=== PATIENT | female | born 1970 | race Caucasian/White ===

== ENCOUNTER 2022-08-15 07:09 | Inpatient (IN) ==
[2022-08-15] MEDS ORDERED: FAMOTIDINE 20MG IV PUSH 20 MG/5 ML SYR IV STA (07:33)
[2022-08-15] MEDS ORDERED: ONDANSETRON INJ 2 MG/ML 2 ML VIAL IV STA (07:33)
[2022-08-15] MEDS ORDERED: MoRPHine SULFATE 4 MG/ML 1 ML CARP\\VIAL IV STA (07:33)
[2022-08-15] MEDS ORDERED: SODIUM CHLORIDE 0.9% 1000ML 1,000 ML IV SCH ×2 (07:34→10:00)
--- NOTE | 2022-08-15 07:39 | Emergency Department Note ---
History of Present Illness General Chief complaint: Abdominal Pain Stated complaint: BACK PAIN, ABDOMINAL PAIN Time Seen by Provider: 08/15/22 07:15 History of Present Illness Maximum Pain Intensity: 8 Patient is a 52-year-old female with past medical history significant for hypothyroidism, dyslipidemia, history of viral cardiomyopathy with recovered EF, and status post cholecystectomy (5 years ago) who presents emergency department for evaluation of upper abdominal pain wrapping around to the back that started acutely about 5 hours ago. She states the pain woke her from sleep. She describes a stabbing epigastric pain that wraps around to her upper back. She gets waves of cramping, spasming pain in the abdomen. It is worse when she lays flat and better when she sits upright. She is nauseous and vomited x1. No diarrhea. The pain was a bit worse earlier this morning, but she states it is gotten a little bit better, though she still rates her pain an 8/10. No urinary symptoms. She is postmenopausal. She reports having episode of pain similar to this on Wednesday, 2 days ago. The pain started in the morning, she thought it was indigestion and tried taking Tums. It progressively worsened throughout the day, finally improved around 1800 in the evening after she had vomited. She denies any unusual food or water consumption, foreign travel, recent antibiotic use. She has seen GI in the past for esophageal issues and had an EGD with dilatation. She has no chest pain. No shortness of breath. No hematemesis. No recent alcohol consumption. She has been following the [employer] diet plan x 5 months with 30 pound weight loss over that time period. No recent medication changes. Home Medications Medication Instructions Recorded Confirmed Type aspirin 81 mg chewable tablet 81 mg PO DAILY 04/24/21 08/15/22 History carvedilol 3.125 mg tablet (Coreg) 3.125 mg PO BID 04/24/21 08/15/22 History rosuvastatin 10 mg tablet (Crestor) 10 mg PO DAILY 04/24/21 08/15/22 History levothyroxine 25 mcg tablet 25 mcg PO DAILY #90 tabs 06/03/22 08/15/22 Rx (Synthroid) Allergies Allergy/AdvReac Type Severity Reaction Status Date / Time No Known Allergies Allergy Verified 10/09/21 15:40 Past Med/Surg History Medical History Bradycardia Cholelithiasis Family history of heart disease Hiatal hernia Hyperlipidemia Hypotension Hypothyroidism Viral cardiomyopathy Surgical History History of cholecystectomy History of hysterectomy Social History Smoking Status: Never smoker Feels Safe at Home: Yes Review of Systems A total of 10 systems reviewed and were otherwise negative Physical Exam Vital Signs Vital Signs - 24 hr 08/15/22 07:12 08/15/22 08:23 08/15/22 08:30 Temperature 36.5 C Temperature Source Oral Pulse Rate 65 67 68 Pulse Rate from SpO2 Sensor Respiratory Rate 20 20 20 Blood Pressure 123/53 L 100/60 111/54 L Blood Pressure Mean 76 73 73 Pulse Oximetry 94 99 99 Oxygen Delivery Method Room Air Room Air Sepsis Recent Fever Within 48 Hours No Sepsis New/Unexplained Change in Mental Status No Sepsis Action Taken by Nursing No Action Required 08/15/22 10:00 Temperature Temperature Source Pulse Rate 65 Pulse Rate from SpO2 Sensor 68 Respiratory Rate 18 Blood Pressure Blood Pressure Mean Pulse Oximetry 97 Oxygen Delivery Method Sepsis Recent Fever Within 48 Hours Sepsis New/Unexplained Change in Mental Status Sepsis Action Taken by Nursing CONSTITUTIONAL: Patient is an uncomfortable 52-year-old female who is awake and alert and seated up on the gurney in moderate distress due to her stated complaint. EYES: Pupils equal, round, reactive to light and accommodation. EOMs intact without nystagmus. Sclera are anicteric. ENT: Tympanic membranes intact, with normal landmarks. External canals are clear. Oral and nasopharynx are clear. Mucous membranes are moist, no lesions, tongue and gums appear normal. CARDIOVASCULAR: Regular rate and rhythm. Peripheral pulses easy to palpable. RESPIRATORY: Breath sounds equal and clear to auscultation without wheezes, rales, or rhonchi heard. Full and equal chest expansion without accessory muscle use or retractions. GI: Bowel sounds are present. Well-healed surgical scars are noted. The abdomen is soft, obese, mildly tender to percussion through the upper abdomen, and tender to palpation in the epigastric region and right upper quadrant with voluntary guarding. No pulsatile masses. MUSCULOSKELETAL: Full range of motion of extremities x 4 with good strength. No cyanosis, edema, joint tenderness or swelling. No deformity. INTEGUMENTARY: No lesions or rash, normal skin turgor. NEUROLOGICAL: Alert, oriented, and cooperative. Cranial nerves, sensation and strength grossly intact. Pupils round, equal, and react to light, EOMs are fu ll. LYMPH: No lymphadenopathy. Course Course Patient was seen and assessed as above. External medical records were reviewed. She presents the emergency department for evaluation of epigastric abdominal pain, nausea and vomiting. She is status post cholecystectomy. IV lock was initiated and laboratory studies were collected. CBC with differential, CMP, lipase, troponin and urinalysis were collected. EKG was performed. She was hydrated with normal saline solution. She was treated with morphine 4 mg Zofran 4 mg and Pepcid 20 mg IV, with good relief of her pain. Laboratory studies note a normal white count of 8300, left shift noted. No anemia. Electrolytes and renal functions are normal. Total bilirubin elevated at 1.8, transaminases are all also elevated, lipase is greater than 4000, concerning for pancreatitis. High-sensitivity troponin is negative and not indicative of ACS. Urine microscopy is concerning for infection with nitrates leukocyte esterase and 4+ bacteria, 20-30 epithelial cells are noted, and a urine culture is pending. The patient is not experiencing any urinary symptoms. EKG is without acute ischemic changes. CT scan of the abdomen and pelvis with IV contrast notes the liver, gallbladder and biliary tree to be unremarkable. She is s/p cholecystectomy. Physiologic prominence of the biliary ducts noted. The pancreas was unremarkable with no focal lesions. No other acute intra-abdominal findings noted. Laboratory and diagnostic imaging studies were reviewed with attending physician, Dr. Montelongo, and discussed with the patient and her daughter. She has findings concerning for acute pancreatitis with an elevated lipase, structurally the pancreas is appears abnormal on CT. She also has elevation of her transaminases and bilirubin, concerning for biliary pathology, possibly a passed stone. After review of the information above and other included data, I feel the patient will need admission/observation to further delineate the source of her symptoms. She will likely require an MRCP and GI evaluation. This was discussed with the patient and her daughter, she was agreeable. A COVID test was obtained for admitting purposes and was negative. Administered Medications Lactated Ringer's (Lr) 1,000 mls @ 200 mls/hr IV .Q5H MIRIAN Stop: 08/16/22 05:24 Last Admin: 08/15/22 15:30 Dose: 200 mls/hr Documented By: ENE Discontinued Medications Sodium Chloride (Nss 1000ml) 1,000 mls @ 999 mls/hr IV .Q1H1M MIRIAN Stop: 08/15/22 08:34 Last Infusion: 08/15/22 09:33 Dose: 0 mls/hr Documented By: Admin: 08/15/22 08:24 Dose: 999 mls/hr Documented By: CHRISTAL Famotidine (Pepcid 20mg Iv Push) 20 mg in 5 mls @ 2.5 mls/min IV NOW STA Stop: 08/15/22 07:34 Last Admin: 08/15/22 08:23 Dose: 2.5 mls/min Documented By: CHRISTAL Sodium Chloride (Nss 1000ml) 1,000 mls @ 250 mls/hr IV .Q4H MIRIAN Stop: 09/14/22 09:59 Last Infusion: 08/15/22 12:30 Dose: 0 mls/hr Documented By: Admin: 08/15/22 10:07 Dose: 250 mls/hr Documented By: ENE Lactated Ringer's (Lr) 1,000 mls @ 999 mls/hr IV .Q1H1M ONE Stop: 08/15/22 11:13 Last Infusion: 08/15/22 15:26 Dose: 0 mls/hr Documented By: Admin: 08/15/22 12:00 Dose: 999 mls/hr Documented By: ENE Metronidazole (Flagyl) 500 mg in 100 mls @ 100 mls/hr IV NOW STA Stop: 08/15/22 11:41 Last Infusion: 08/15/22 13:34 Dose: 0 mls/hr Documented By: Admin: 08/15/22 12:19 Dose: 100 mls/hr Documented By: ENE Ceftriaxone Sodium (Rocephin) 2,000 mg in 70 mls @ 140 mls/hr IV NOW STA Stop: 08/15/22 14:39 Last Infusion: 08/15/22 15:25 Dose: 0 mls/hr Documented By: Admin: 08/15/22 14:16 Dose: 140 mls/hr Documented By: ENE Ioversol (Optiray 350 100ml) 94 ml IV ONCE ONE Stop: 08/15/22 09:07 Last Admin: 08/15/22 09:06 Dose: 94 ml Documented By: BRODIE Morphine Sulfate (Morphine Sulfate 4 Mg/Ml 1 Ml Carp\Vial) 4 mg IV NOW STA Stop: 08/15/22 07:34 Last Admin: 08/15/22 08:24 Dose: 4 mg Documented By: CHRISTAL Ondansetron HCl (Ondansetron Inj 2 Mg/Ml 2 Ml Vial) 4 mg IV NOW STA Stop: 08/15/22 07:34 Last Admin: 08/15/22 08:23 Dose: 4 mg Documented By: CHRISTAL Medical Decision Making Differential Diagnosis Differential diagnoses considered included GERD, gastritis, esophagitis, peptic ulcer disease, acute pancreatitis, choledocholithiasis, ascending cholangitis, bowel obstruction, aortic dissection, ACS, acute MN, among others. Medical Records Attestation: I reviewed the patient's medical records. Home Medications Current Medication List: was personally reviewed by me Laboratory Data Attestation: I reviewed the patient's lab results. 08/15/22 08:42 08/15/22 08:15 Lab Results 08/15/22 08/15/22 08/15/22 Range/Units 07:40 08:15 08:15 WBC Cancelled RBC Cancelled Hgb Cancelled Hct Cancelled MCV Cancelled MCH Cancelled MCHC Cancelled RDW Std Deviation Cancelled RDW Coeff of Serina Cancelled Plt Count Cancelled MPV Cancelled Immature Gran % (Auto) Cancelled Neut % (Auto) Cancelled Lymph % (Auto) Cancelled [place] % (Auto) Cancelled Eos % (Auto) Cancelled Baso % (Auto) Cancelled Neut # (Auto) Cancelled Lymph # (Auto) Cancelled [place] # (Auto) Cancelled Eos # (Auto) Cancelled Baso # (Auto) Cancelled Immature Gran # (Auto) Cancelled Absolute Nucleated RBC Cancelled Nucleated RBC % (auto) Cancelled Neutrophils % (Manual) Cancelled Band Neutrophils % Cancelled Lymphocytes % (Manual) Cancelled Prolymphocyte % Cancelled Reactive Lymphs % (Man) Cancelled Monocytes % (Manual) Cancelled Eosinophils % (Manual) Cancelled Basophils % (Manual) Cancelled Metamyelocytes % (Man) Cancelled Myelocytes % (Man) Cancelled Promyelocytes % (Man) Cancelled Blast Cells % (Manual) Cancelled Plasma Cell % (Manual) Cancelled Other Cells % Cancelled Nucleated RBC % Cancelled Neutrophils # (Manual) Cancelled Band Neutrophils # Cancelled Total Absolute Neuts Cancelled Lymphocytes # (Manual) Cancelled Prolymphocyte # Cancelled Reactive Lymphs # Cancelled Total Abs Lymphocytes Cancelled Monocytes # (Manual) Cancelled Eosinophils # (Manual) Cancelled Basophils # (Manual) Cancelled Metamyelocytes # (Man) Cancelled Myelocytes # (Manual) Cancelled Promyelocytes # (Man) Cancelled Blast Cells # (Man) Cancelled Plasma Cell # (Manual) Cancelled Other Cells # Cancelled Nucleated RBCs # (Man) Cancelled Hypersegmented Neuts Cancelled Hyposegmented Neuts Cancelled Hypogranular Neuts Cancelled Large Granular Lymphs Cancelled # Lrg Granular Lymphs Cancelled Hairy Cells Cancelled Smudge Cells Cancelled Toxic Granulation Cancelled Toxic Vacuolation Cancelled Dohle Bodies Cancelled Benita Rods Cancelled Platelet Estimate Cancelled Hypogranular Platelets Cancelled Clumped Platelets Cancelled Giant Platelets Cancelled Platelet Satelliting Cancelled RBC Morphology Cancelled Polychromasia Cancelled Hypochromasia Cancelled Poikilocytosis Cancelled Basophilic Stippling Cancelled Anisocytosis Cancelled Microcytosis Cancelled Macrocytosis Cancelled Spherocytes Cancelled Pappenheimer Bodies Cancelled Sickle Cells Cancelled Target Cells Cancelled Tear Drop Cells Cancelled Ovalocytes Cancelled Stomatocytes Cancelled [place] Bodies Cancelled Echinocytes Cancelled Acanthocytes (Spur) Cancelled Rouleaux Cancelled RBC Agglutinates Cancelled Schistocytes Cancelled [place] Cell Cancelled Sodium 138 (136-145) mmol/L Potassium 4.0 (3.5-5.1) mmol/L Chloride 105 (98-107) mmol/L Carbon Dioxide 23 (21-32) mmol/L Anion Gap 10 (3-11) BUN 13 (6-23) mg/dl Creatinine 0.60 (0.6-1.2) mg/dl Est Cr Clr Drug Dosing 121.5 ml/min Est GFR ( Amer) 119.8 ml/min Est GFR (Non-Af Amer) 103.3 ml/min BUN/Creatinine Ratio 21.7 H (10-20) Glucose 139 H (70-99(Fasting)) mg/dl Calcium 9.7 (8.5-10.1) mg/dl Total Bilirubin 1.8 H (0.2-1.0) mg/dl AST 385 H (13-39) U/L ALT 615 H (7-52) U/L Alkaline Phosphatase 304 H (34-104) U/L Troponin I High Sens 4.7 (0-14) pg/ml Total Protein 7.8 (6.0-8.3) gm/dl Albumin 4.6 (3.4-5.0) gm/dl Globulin 3.2 (2.5-4.0) gm/dl Albumin/Globulin Ratio 1.4 (0.9-2) Triglycerides (0-150) mg/dl Lipase 4297 H (11-82) U/L Urine Color Dark Yellow Urine Appearance Cloudy A (Clear) Urine pH 6.5 (4.5-7.5) Ur Specific [place] 1.020 (1.000-1.030) Urine Protein Negative (Negative) Urine Glucose (UA) Negative (Negative) Urine Ketones Negative (Negative) Urine Blood Trace H (Negative) Urine Nitrite Positive A (Negative) Urine Bilirubin 1+ H (Negative) Urine Urobilinogen Negative (Negative) Ur Leukocyte Esterase 2+ H (Negative) Urine WBC (Auto) 10-30 H (0-5) /hpf Urine RBC (Auto) 0-4 (0-4) /hpf U Hyaline Cast (Auto) 1-5 (0-5) /lpf U Epithel Cells (Auto) 20-30 H (0-5) /lpf Urine Bacteria (Auto) 4+ H (Negative) SARS-CoV-2, RNA, NAAT (NEGATIVE) Blood Parasites ID Cancelled 08/15/22 08/15/22 08/15/22 Range/Units 08:15 08:42 09:55 WBC 8.35 RBC 4.55 Hgb 13.4 Hct 39.8 MCV 87.5 MCH 29.5 MCHC 33.7 RDW Std Deviation 39.8 RDW Coeff of Serina 12.5 Plt Count 256 MPV 11.6 Immature Gran % (Auto) 0.4 Neut % (Auto) 84.9 Lymph % (Auto) 9.6 [place] % (Auto) 4.1 Eos % (Auto) 0.8 Baso % (Auto) 0.2 Neut # (Auto) 7.09 H Lymph # (Auto) 0.80 L [place] # (Auto) 0.34 Eos # (Auto) 0.07 Baso # (Auto) 0.02 Immature Gran # (Auto) 0.03 H Absolute Nucleated RBC Nucleated RBC % (auto) Neutrophils % (Manual) Band Neutrophils % Lymphocytes % (Manual) Prolymphocyte % Reactive Lymphs % (Man) Monocytes % (Manual) Eosinophils % (Manual) Basophils % (Manual) Metamyelocytes % (Man) Myelocytes % (Man) Promyelocytes % (Man) Blast Cells % (Manual) Plasma Cell % (Manual) Other Cells % Nucleated RBC % Neutrophils # (Manual) Band Neutrophils # Total Absolute Neuts Lymphocytes # (Manual) Prolymphocyte # Reactive Lymphs # Total Abs Lymphocytes Monocytes # (Manual) Eosinophils # (Manual) Basophils # (Manual) Metamyelocytes # (Man) Myelocytes # (Manual) Promyelocytes # (Man) Blast Cells # (Man) Plasma Cell # (Manual) Other Cells # Nucleated RBCs # (Man) Hypersegmented Neuts Hyposegmented Neuts Hypogranular Neuts Large Granular Lymphs # Lrg Granular Lymphs Hairy Cells Smudge Cells Toxic Granulation Toxic Vacuolation Dohle Bodies Benita Rods Platelet Estimate Hypogranular Platelets Clumped Platelets Giant Platelets Platelet Satelliting RBC Morphology Polychromasia Hypochromasia Poikilocytosis Basophilic Stippling Anisocytosis Microcytosis Macrocytosis Spherocytes Pappenheimer Bodies Sickle Cells Target Cells Tear Drop Cells Ovalocytes Stomatocytes [place] Bodies Echinocytes Acanthocytes (Spur) Rouleaux RBC Agglutinates Schistocytes [place] Cell Sodium (136-145) mmol/L Potassium (3.5-5.1) mmol/L Chloride (98-107) mmol/L Carbon Dioxide (21-32) mmol/L Anion Gap (3-11) BUN (6-23) mg/dl Creatinine (0.6-1.2) mg/dl Est Cr Clr Drug Dosing ml/min Est GFR ( Amer) ml/min Est GFR (Non-Af Amer) ml/min BUN/Creatinine Ratio (10-20) Glucose (70-99(Fasting)) mg/dl Calcium (8.5-10.1) mg/dl Total Bilirubin (0.2-1.0) mg/dl AST (13-39) U/L ALT (7-52) U/L Alkaline Phosphatase (34-104) U/L Troponin I High Sens (0-14) pg/ml Total Protein (6.0-8.3) gm/dl Albumin (3.4-5.0) gm/dl Globulin (2.5-4.0) gm/dl Albumin/Globulin Ratio (0.9-2) Triglycerides 64 (0-150) mg/dl Lipase (11-82) U/L Urine Color Urine Appearance (Clear) Urine pH (4.5-7.5) Ur Specific [place] (1.000-1.030) Urine Protein (Negative) Urine Glucose (UA) (Negative) Urine Ketones (Negative) Urine Blood (Negative) Urine Nitrite (Negative) Urine Bilirubin (Negative) Urine Urobilinogen (Negative) Ur Leukocyte Esterase (Negative) Urine WBC (Auto) (0-5) /hpf Urine RBC (Auto) (0-4) /hpf U Hyaline Cast (Auto) (0-5) /lpf U Epithel Cells (Auto) (0-5) /lpf Urine Bacteria (Auto) (Negative) SARS-CoV-2, RNA, NAAT NEGATIVE (NEGATIVE) Blood Parasites ID Imaging Data Attestation: I personally reviewed and interpreted this imaging study as follows: Radiologist's Impression: Abdomen/Pelvis CT 08/15/22 07:33 CT abd pelvis IV con only CLINICAL HISTORY: UPPER ABD PAIN, BACK PAIN, N/V TECHNIQUE: Helical axial images of the abdomen and pelvis were obtained and displayed. Automated dose lowering techniques and/or adjustment according to patient size were utilized for this exam. This exam was performed with intravenous contrast. CT DOSE: 1158.42 mGy.cm COMPARISON: None available at the time of this dictation. FINDINGS: Lower chest: Bibasilar atelectasis versus scarring is seen. Liver: Unremarkable. No focal lesions are seen. Gallbladder and biliary tree: Patient is status post cholecystectomy. Physiologic prominence of the biliary ducts is noted. Pancreas: Unremarkable, no focal lesions. Spleen: Unremarkable. Adrenals: Unremarkable. Kidneys and ureters: Unremarkable. Bladder: Limited evaluation due to underdistention. Reproductive organs: Patient is status post hysterectomy. Bowel: The appendix is not definitely seen but no secondary signs of appen dicitis are noted. There is a small hiatal hernia. Lymph nodes Retroperitoneal: Unremarkable. Pelvic: Unremarkable. Mesenteric: Unremarkable. Peritoneum: Normal. Vessels: Unremarkable. Abdominal wall: Unremarkable. Bones: Degenerative changes in the visualized spine. IMPRESSION: No acute abnormalities to explain and upper back pain and vomiting. No evidence of pancreatitis or bowel obstruction. ACT 112: Negative or not required by law. Electronically signed by: Ascencion Mcclure M.D. 08/15/2022 9:22 AM Cholangiopancreatography MRI 08/15/22 10:13 MR MRCP CLINICAL HISTORY: pancreatitis, suspected cholelithiasis TECHNIQUE: Multiplanar multisequence MR images of the abdomen were obtained, as per MRCP protocol. . COMPARISON: Comparison is made to CT abdomen pelvis 08/15/2022 FINDINGS: Lower chest: No acute abnormality Liver: Unremarkable. No focal lesions are seen. Gallbladder and biliary tree: Patient is status post cholecystectomy. The common bile duct measures 7 mm in diameter compatible with physiologic dilation. No filling defects or strictures are seen. Pancreas: Unremarkable, no focal lesions. Spleen: Unremarkable. Adrenals: Unremarkable. Kidneys and ureters: Unremarkable. Bowel: A hiatal hernia is seen. Lymph nodes Retroperitoneal: Unremarkable. Mesenteric: Unremarkable. Peritoneum: Normal Vessels: Unremarkable. Abdominal wall: Unremarkable. Bones: Unremarkable. IMPRESSION: No acute abnormality, in particular no evidence of choledocholithiasis or cholecystitis in this patient status post cholecystectomy. No peripancreatic edema is seen in the pancreatic duct is normal where visualized. ACT 112: Negative or not required by law. Electronically signed by: Ascencion Mcclure M.D. 08/15/2022 11:31 AM Chest X-Ray 08/15/22 10:14 XR chest 1V portable CLINICAL HISTORY: epigastric pain ?lung pathology TECHNIQUE: Single frontal radiograph of the chest was obtained. Comparison: None available at the time of this dictation. FINDINGS: No lines and tubes are seen. The cardiomediastinal silhouette is normal. The lungs are clear. No evidence of pleural effusion or pneumothorax. IMPRESSION: No acute chest disease. ACT 112: Negative or not required by law. Electronically signed by: Ascencion Mcclure M.D. 08/15/2022 12:27 PM ECG Data Attestation: I personally reviewed and interpreted this ECG as follows: Indication: + abdominal pain Rate (beats per minute): 63 Rhythm: + normal sinus ECG [place]: + Normal ECG ST segments: + Normal ST segments Comparison ECG Date: no prior available MDM Narrative See ED Course. Impression & Plan Acute pancreatitis, Transaminitis, Epigastric abdominal pain Discharge Plan Visit Data Chief Complaint: Abdominal Pain Stated Complaint: BACK PAIN, ABDOMINAL PAIN ED Provider: Anna Montelongo ED Midlevel Provider: Adriana Solis Discharge Problem: Acute pancreatitis, Transaminitis, Epigastric abdominal pain Patient Disposition: Being Evaluated by Hospitalist Discharge Instructions Interventions: ED Discharge Assessment Last Done: 08/15/22 14:25
[2022-08-15 08:33] LABS: Appearance Urine Cloudy (Clear); Bacteria Urine Automated 4+ (Negative); Blood Urine Trace (Negative); Color Urine Dark Yellow; Epithelial Cell Urine Auto 20-30 /lpf (0-5); Glucose Urine UA Negative (Negative); Ketones Urine Negative (Negative); Leukocyte Esterase Urine 2+ (Negative); Nitrite Urine Positive (Negative); Protein Urine Negative (Negative); RBC Urine Automated 0-4 /hpf (0-4); Urobilinogen Urine Negative (Negative); pH Urine 6.5 (4.5-7.5)
[2022-08-15 08:38] LABS: Bilirubin Urine 1+ (Negative)
[2022-08-15 08:50] LABS: BUN Creatinine Ratio 21.7 (10-20); Calcium 9.7 mg/dl (8.5-10.1); Creatinine Clr Calc Pharmacy 121.5 ml/min; Est GFR (African American) 119.8 ml/min; Est GFR (Non-African American) 103.3 ml/min
[2022-08-15 08:52] LABS: Basophils # (auto) 0.02 K/uL (0-0.2); Basophils % (auto) 0.2 %; Eosinophils # (auto) 0.07 K/uL (0-0.50); Eosinophils % (auto) 0.8 %; Hematocrit (blood only) 39.8 % (34.1-44.9); Hemoglobin 13.4 g/dl (12.0-16.0); Immature Granulocytes # (auto) 0.03 K/uL (0.00-0.02); Immature Granulocytes % (auto) 0.4 %; Lymphocytes % (auto) 9.6 %; Mean Corpuscular Hemoglobin 29.5 pg (25.0-34.0); Mean Corpuscular Hgb Conc 33.7 g/dL (32.0-36.0); Mean Corpuscular Volume 87.5 fL (80.0-100.0); Mean Platelet Volume 11.6 fL (9.4-12.3); Monocytes # (auto) 0.34 K/uL (0.24-0.82); Monocytes % (auto) 4.1 %; Neutrophils # (auto) 7.09 K/uL (1.4-6.5); Neutrophils % (auto) 84.9 %; Platelet Count 256 K/uL (130-400); RDW Coefficient of Variation 12.5 % (11.5-14.5); RDW Standard Deviation 39.8 fL (36.4-46.3); Red Blood Count 4.55 M/uL (3.93-5.22); White Blood Count 8.35 K/ul (4.8-10.8)
[2022-08-15 08:52] LABS: Troponin I High Sensitivity 4.7 pg/ml (0-14)
[2022-08-15] MEDS ORDERED: OPTIRAY 350 100ml IV ONE (09:06)
--- NOTE | 2022-08-15 09:24 | CT Scan Report ---
CT abd pelvis IV con only CLINICAL HISTORY: UPPER ABD PAIN, BACK PAIN, N/V TECHNIQUE: Helical axial images of the abdomen and pelvis were obtained and displayed. Automated dose lowering techniques and/or adjustment according to patient size were utilized for this exam. This e xam was performed with intravenous contrast. CT DOSE: 1158.42 mGy.cm COMPARISON: None available at the time of this dictation. FINDINGS: Lower chest: Bibasilar atelectasis versus scarring is seen. Liver: Unremarkable. No focal lesions are seen. Gallbladder and biliary tree: Patient is status post cholecystectomy. Physiologic prominence of the b iliary ducts is noted. Pancreas: Unremarkable, no focal lesions. Spleen: Unremarkable. Adrenals: Unremarkable. Kidneys and ureters: Unremarkable. Bladder: Limited evaluation due to underdistention. Reproductive organs: Patient is status post hysterectomy. Bowel: The appendix is not definitely seen but no secondary signs of appendicitis are noted. There is a small hiatal hernia. Lymph nodes Retroperitoneal: Unremarkable. Pelvic: Unremarkable. Mesenteric: Unremarkable. Peritoneum: Normal. Vessels: Unremarkable. Abdominal wall: Unremarkable. Bones: Degenerative changes in the visualized spine. IMPRESSION: No acute abnormalities to explain and upper back pain and vomiting. No evidence of pancreatitis or [place] wel obstruction. ACT 112: Negative or not required by law. Electronically signed by: Ascencion Mcclure M.D. 08/15/2022 9:22 AM
[2022-08-15 09:30] LABS: Albumin Globulin Ratio 1.4 (0.9-2); Albumin Level 4.6 gm/dl (3.4-5.0); Bilirubin,Total 1.8 mg/dl (0.2-1.0); Globulin 3.2 gm/dl (2.5-4.0); Total Protein 7.8 gm/dl (6.0-8.3)
[2022-08-15] MEDS ORDERED: MoRPHine SULFATE 4 MG/ML 1 ML CARP\\VIAL IV PRN (09:52)
[2022-08-15] MEDS ORDERED: LACTATED RINGER'S 1,000 ML IV ONE (10:13)
--- NOTE | 2022-08-15 10:30 | History & Physical Report ---
Date of Service August 15, 2022 Assessment & Plan (1) Acute pancreatitis: Plan: Suspected biliary pancreatitis - no abnormality seen on CT (?due to acute onset and passed stone) - likely passed given pain reduction however warrants EGD regardless given second episode in a week without a gallbladder and suspected esophageal stricture stricture causing esophageal dysphagia on a more chronic basis. NSS 1L bolus given in ER. Additional 1L LR bolus now then 200ml/hr overnight. Patient is not septic appearing and WBC normal however given obstruction will cover with antibiotic prophylaxis with ceftriaxone and metronidazole Morphine 2 mg IV every 2 hourly as needed for pain Ondansetron 4 mg IV every 4 hourly as needed for nausea or vomiting Triglycerides added to labs for completeness -however low suspicion of this. Repeat LFTs in AM MRCP Consult gastroenterology (2) Cholelithiasis: Plan: Suspected passed stone. MRCP as above (3) Transaminitis: Plan: Suspect from biliary obstruction as above (4) Esophageal dysphagia: Plan: Slow progressive worsening Suspected stricture since she had dilatation previously 5-6 years ago. (5) Hypothyroidism: Plan: Holding levothyroxine while NPO (6) Hyperlipidemia: Plan: Holding rosuvastatin while NPO Plan VTE Prophylaxis - low risk Diet - NPO except sips, ice chips and meds Disposition - admit to [facility] Admission and Anticipated Discharge Date Admission Date: August 15, 2022 History of Present Illness Primary Care Provider: Liang Calvin PA-C - [place] Deb Olivas 52 year old female who presents to ER with epigastric pain. She has had 2 episodes of this. Her previous episode started on Wednesday (3 days ago) lasting for approximately 12 hours and resolved by itself. Her second episode started at 2 AM this morning. She reports epigastric pain. Started on Wednesday, then again at 2 this morning. Pain is epigastric but radiates through to her back. Severity 9 out of 10. No relief with Tums. Pain was sharp and coming on in waves. Associated violent vomiting with yellow liquid. She has never had similar episodes in the past. This is on a background of esophageal dysphagia for the last 6 months with food getting stuck. Does not happen with liquids. Occasionally this leads to her vomiting. She reports previously having esophageal dysphagia and required an EGD and dilatation approximately 5 to 6 years ago. She reports cholecystectomy in 2016 which was removed for biliary colic planning as an elective operation. 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 In the ER she was given normal saline 1 L bolus and morphine 4 mg IV which completely resolved her pain. Allergies Allergy/AdvReac Type Severity Reaction Status Date / Time No Known Allergies Allergy Verified 10/09/21 15:40 Home Medications Medication Instructions Recorded Confirmed Type aspirin 81 mg chewable tablet 81 mg PO DAILY 04/24/21 08/15/22 History carvedilol 3.125 mg tablet (Coreg) 3.125 mg PO BID 04/24/21 08/15/22 History rosuvastatin 10 mg tablet (Crestor) 10 mg PO DAILY 04/24/21 08/15/22 History levothyroxine 25 mcg tablet 25 mcg PO DAILY #90 tabs 06/03/22 08/15/22 Rx (Synthroid) Past Med/Surg History Medical History Bradycardia Cholelithiasis Family history of heart disease Hiatal hernia Hyperlipidemia Hypotension Hypothyroidism Viral cardiomyopathy Surgical History History of cholecystectomy History of hysterectomy Social History Smoking Status: Never smoker Feels Safe at Home: Yes Review of Systems Review of Systems: All systems reviewed & are unremarkable except as noted in HPI & below Physical Exam Constitutional: WD/WN, vitals as above Respiratory: normal respiratory effort, lungs clear to auscultation Cardiovascular: RRR, no murmur, no edema Gastrointestinal (Abdomen): normal bowel sounds, soft, nontender, no hepatosplenomegaly Inspection/Auscultation: abdomen not distended Musculoskeletal: no cyanosis or clubbing, extremities motor strength 5/5 Skin: no rashes, warm and dry Psychiatric: A+Ox3, euthymic affect Results & Data Results & Data ([facility]) Vital Signs (Past 12 Hours) Vital Signs Temp Pulse Resp BP Pulse Ox O2 Del Method 08/15/22 10:00 65 18 97 08/15/22 08:30 68 20 111/54 L 99 08/15/22 08:23 67 20 100/60 99 Room Air 08/15/22 07:12 36.5 C 65 20 123/53 L 94 Room Air Laboratory Results Abnormal lab results 08/15/22 08/15/22 08/15/22 Range/Units 07:40 08:15 08:42 Neut # (Auto) 7.09 H (1.4-6.5) K/uL Lymph # (Auto) 0.80 L (1.2-3.4) K/uL Immature Gran # (Auto) 0.03 H (0.00-0.02) K/uL BUN/Creatinine Ratio 21.7 H (10-20) Glucose 139 H (70-99(Fasting)) mg/dl Total Bilirubin 1.8 H (0.2-1.0) mg/dl AST 385 H (13-39) U/L ALT 615 H (7-52) U/L Alkaline Phosphatase 304 H (34-104) U/L Lipase 4297 H (11-82) U/L Urine Appearance Cloudy A (Clear) Urine Blood Trace H (Negative) Urine Nitrite Positive A (Negative) Urine Bilirubin 1+ H (Negative) Ur Leukocyte Esterase 2+ H (Negative) Urine WBC (Auto) 10-30 H (0-5) /hpf U Epithel Cells (Auto) 20-30 H (0-5) /lpf Urine Bacteria (Auto) 4+ H (Negative) Diagnostic Findings CT abd pelvis IV con only CLINICAL HISTORY: UPPER ABD PAIN, BACK PAIN, N/V TECHNIQUE: Helical axial images of the abdomen and pelvis were obtained and displayed. Automated dose lowering techniques and/or adjustment according to patient size were utilized for this exam. This exam was performed with intravenous contrast. CT DOSE: 1158.42 mGy.cm COMPARISON: None available at the time of this dictation. FINDINGS: Lower chest: Bibasilar atelectasis versus scarring is seen. Liver: Unremarkable. No focal lesions are seen. Gallbladder and biliary tree: Patient is status post cholecystectomy. Physiologic prominence of the biliary ducts is noted. Pancreas: Unremarkable, no focal lesions. Spleen: Unremarkable. Adrenals: Unremarkable. Kidneys and ureters: Unremarkable. Bladder: Limited evaluation due to underdistention. Reproductive organs: Patient is status post hysterectomy. Bowel: The appendix is not definitely seen but no secondary signs of appendicitis are noted. There is a small hiatal hernia. Lymph nodes Retroperitoneal: Unremarkable. Pelvic: Unremarkable. Mesenteric: Unremarkable. Peritoneum: Normal. Vessels: Unremarkable. Abdominal wall: Unremarkable. Bones: Degenerative changes in the visualized spine. IMPRESSION: No acute abnormalities to explain and upper back pain and vomiting. No evidence of pancreatitis or bowel obstruction. Medications Administered ER medications given: NSS 1L bolus Ondansetron 4 mg IV Morphine 4 mg IV Famotidine 20 mg IV NSS @ 250ml/hr ECG Indication: abdominal pain Rate (beats per minute): 63 Rhythm: normal sinus Findings: no acute ischemic change Comparison ECG Date: no prior available Code Status & VTE Plan Code Status Full VTE Prophylaxis Plan VTE Prophylaxis will be ordered: No Reason for no VTE drug order: Treatment not indicated Reason for no VTE mechanical prophylaxis: Treatment not tolerated PG Care Time/CCT Total # of Minutes Spent Total Time Spent with Patient: Total time spent is greater than 50% in coordination of care (as documented) at patient's floor/unit and/or counseling patient: Coding Level of Care Code 38934 INT INP/OBS CARE 2/55MIN Diagnoses Acute pancreatitis K85.90 Cholelithiasis K80.20 Transaminitis R74.01 Esophageal dysphagia R13.19 Hypothyroidism E03.9 Hyperlipidemia E78.5
[2022-08-15] MEDS ORDERED: cefTRIAXone SODIUM 2,000 MG/70 ML BAG IV STA ×2 (10:40→14:10)
[2022-08-15] MEDS ORDERED: metroNIDAZOLE 500 MG/100 ML BAG IV STA (10:42)
--- NOTE | 2022-08-15 11:33 | Magnetic Resonance Report ---
MR MRCP CLINICAL HISTORY: pancreatitis, suspected cholelithiasis TECHNIQUE: Multiplanar multisequence MR images of the abdomen were obtained, as per MRCP protocol. . COMPARISON: Comparison is made to CT abdomen pelvis 08/15/2022 FINDINGS: Lower chest: No acute abnormality Liver: Unremarkable. No focal lesions are seen. Gallbladder and biliary tree: Patient is status post cholecystectomy. The common bile duct measures 7 mm in diameter compatible with physiologic dilation. No filling defects or strictures are seen. Pancreas: Unremarkable, no focal lesions. Spleen: Unremarkable. Adrenals: Unremarkable. Kidneys and ureters: Unremarkable. Bowel: A hiatal hernia is seen. Lymph nodes Retroperitoneal: Unremarkable. Mesenteric: Unremarkable. Peritoneum: Normal Vessels: Unremarkable. Abdominal wall: Unremarkable. Bones: Unremarkable. IMPRESSION: No acute abnormality, in particular no evidence of choledocholithiasis or cholecystitis in this patie nt status post cholecystectomy. No peripancreatic edema is seen in the pancreatic duct is normal wher e visualized. ACT 112: Negative or not required by law. Electronically signed by: Ascencion Mcclure M.D. 08/15/2022 11:31 AM
--- NOTE | 2022-08-15 12:28 | XRay Report ---
XR chest 1V portable CLINICAL HISTORY: epigastric pain ?lung pathology TECHNIQUE: Single frontal radiograph of the chest was obtained. Comparison: None available at the time of this dictation. FINDINGS: No lines and tubes are seen. The cardiomediastinal silhouette is normal. The lungs are clear. No evid ence of pleural effusion or pneumothorax. IMPRESSION: No acute chest disease. ACT 112: Negative or not required by law. Electronically signed by: Ascencion Mcclure M.D. 08/15/2022 12:27 PM
[2022-08-15] MEDS ORDERED: ONDANSETRON INJ 2 MG/ML 2 ML VIAL IV PRN (14:25)
[2022-08-15] MEDS ORDERED: MoRPHine SULFATE 2 MG/ML CARP IV PRN (14:25)
[2022-08-15] MEDS: LACTATED RINGER'S 1,000 ML IV SCH ×2 (15:30→19:58)
[2022-08-15] MEDS: metroNIDAZOLE 500 MG/100 ML BAG IV SCH (19:58)
--- NOTE | 2022-08-15 20:25 | Gastrointestinal Consultation ---
Date of Consultation August 15, 2022 Assessment & Plan (1) Epigastric abdominal pain: (2) Transaminitis: (3) Acute pancreatitis: Can advance to clear liquid diet Continue Lactated Ringer's at 200 ml/hour Continue IV Abx as per primary team Discussed case with Dr. Ta Most likely cause is gallstone induced. I discussed the case in detail with Dr. Hernandez who will plan on performing a EUS/ERCP on Wednesday, unless her symptoms would worsen Check CMP tomorrow (4) Esophageal dysphagia: She has history of EGD with dilation at outside facility. Will ask Dr. Hernandez to perform EGD as well on Wednesday to prevent a second need for anesthesia. Patient is in agreement with the plan. History of Present Illness Reason for Consultation: Gall Stone Pancreatitis Attending Physician: Stiven Ta MD History of Present Illness Deb Olivas is a 52 yo CF who presented to the ER in the ore crusher hours with complaints of sharp stabbing epigastric pain, rated 8/10 in intensity, which radiated to her back. She has associated nausea and vomiting, which did help relieve some of her pain. She did have a similar episode of this earlier this week, but did not present to the ER. Upon arrival to the ER, she was noted to have an elevated liver panel, as well as a Lipase >4000. She did undergo a CT scan abd/pelvis as well as an MRCP, which showed post-cholecystectomy state, but no CBD dilation or filling defects. She denied any recent alcohol use or sick contacts. She was subsequently admitted, started on antibiotics and kept NPO. At the time I saw her, her pain continued, though she rated it at a 4/10 in intensity, still radiating to her back, but no further nausea or vomiting. She states that she definitely feels better than she did earlier today. She denies any history of pancreatitis in the past. She does report a history of GERD and is currently having chronic issues with dysphagia, and has undergone an EGD in the past with dilation at an outside facility, but I do not have these records. She denies any fevers, chills, hematemesis, melena or hematochezia. She has no further complaints. Allergies Allergy/AdvReac Type Severity Reaction Status Date / Time No Known Allergies Allergy Verified 10/09/21 15:40 Home Medications Medication Instructions Recorded Confirmed Type aspirin 81 mg chewable tablet 81 mg PO DAILY 04/24/21 08/15/22 History carvedilol 3.125 mg tablet (Coreg) 3.125 mg PO BID 04/24/21 08/15/22 History rosuvastatin 10 mg tablet (Crestor) 10 mg PO DAILY 04/24/21 08/15/22 History levothyroxine 25 mcg tablet 25 mcg PO DAILY #90 tabs 06/03/22 08/15/22 Rx (Synthroid) Patient History Medical History Bradycardia Cholelithiasis Family history of heart disease Hiatal hernia Hyperlipidemia Hypotension Hypothyroidism Viral cardiomyopathy Surgical History History of cholecystectomy History of hysterectomy Social History Smoking Status: Never smoker Hx Alcohol Use: No Hx Substance Use: No Preferred Language: Greek Communication Ability: Effective Communications Professional Required: No Beliefs That Will Affect Care: None Current Living Situation: Alone Feels Safe at Home: Yes Review of Systems Review of Systems: All systems reviewed & are unremarkable except as noted in Subjective Physical Exam Constitutional: WD/WN, vitals as above + obese Eyes: sclerae not anicteric ENMT: external ear and nose normal, oropharynx normal Neck: normal visual inspection Respiratory: normal respiratory effort, lungs clear to auscultation Cardiovascular: RRR, no murmur, no edema Gastrointestinal (Abdomen): Inspection/Auscultation: abdomen normal to inspection and normal bowel sounds; abdomen not distended Percussion/Palpation: + abdomen tender and abdomen soft; no guarding, abdomen not rigid and no hepatosplenomegaly Skin: no rashes, warm and dry Psychiatric: A+Ox3, euthymic affect Results & Data ([facility]) Vital Signs (Past 12 Hours) Vital Signs Temp Pulse Pulse Resp BP BP Pulse Ox 08/15/22 17:37 94/61 L 08/15/22 17:18 36.5 C 65 18 95/57 L 93 08/15/22 16:00 59 L 16 91/68 L 99 08/15/22 16:00 91/68 L 08/15/22 14:00 62 18 101/69 99 08/15/22 13:00 66 16 98/65 L 98 08/15/22 13:34 60 18 100/55 L 98 08/15/22 10:00 65 18 97 08/15/22 08:30 68 20 111/54 L 99 O2 Del Method 08/15/22 17:37 08/15/22 17:18 Room Air 08/15/22 16:00 08/15/22 16:00 08/15/22 14:00 08/15/22 13:00 08/15/22 13:34 Room Air 08/15/22 10:00 08/15/22 08:30 PG Care Time/CCT Total # of Minutes Spent Total Time Spent with Patient: Total time spent is greater than 50% in coordination of care (as documented) at patient's floor/unit and/or counseling patient: Coding Level of Care Code INP/OBS CONSULT LVL 4, 60 MIN Diagnoses Epigastric abdominal pain R10.13 Transaminitis R74.01 Acute pancreatitis K85.90 Esophageal dysphagia R13.19
[2022-08-16] MEDS: LACTATED RINGER'S 1,000 ML IV SCH ×3 (01:59→18:55)
[2022-08-16] MEDS: metroNIDAZOLE 500 MG/100 ML BAG IV SCH ×3 (04:59→20:07)
[2022-08-16 06:57] LABS: Hematocrit (blood only) 35.7 % (34.1-44.9); Hemoglobin 11.9 g/dl (12.0-16.0); Mean Corpuscular Hemoglobin 29.4 pg (25.0-34.0); Mean Corpuscular Hgb Conc 33.3 g/dL (32.0-36.0); Mean Corpuscular Volume 88.1 fL (80.0-100.0); Mean Platelet Volume 12.1 fL (9.4-12.3); Platelet Count 248 K/uL (130-400); RDW Coefficient of Variation 12.9 % (11.5-14.5); Red Blood Count 4.05 M/uL (3.93-5.22); White Blood Count 4.72 K/ul (4.8-10.8)
[2022-08-16 07:15] LABS: Albumin Globulin Ratio 1.3 (0.9-2); Albumin Level 3.6 gm/dl (3.4-5.0); BUN Creatinine Ratio 15.5 (10-20); Bilirubin,Total 1.5 mg/dl (0.2-1.0); Creatinine Clr Calc Pharmacy 126.6 ml/min; Est GFR (African American) 121.1 ml/min; Est GFR (Non-African American) 104.5 ml/min; Globulin 2.7 gm/dl (2.5-4.0); Potassium 3.7 mmol/L (3.5-5.1); Total Protein 6.3 gm/dl (6.0-8.3)
--- NOTE | 2022-08-16 08:51 | Surgery Consultation ---
Date of Consultation August 16, 2022 Assessment & Plan (1) Pancreatitis: Patient likely with choledocholithiasis She has undergone cholecystectomy Unless her pancreatitis were to become necrotizing I do not think there is any indication For surgical intervention History of Present Illness Attending Physician: Gear Antonio History of Present Illness 52-year-old female who was admitted to the hospital with epigastric pain nausea and vomiting Her liver function studies are elevated and her lipase is over 4000 consistent with mild pancreatitis And possible common bile duct obstruction She is for endoscopy tomorrow and possible ERCP Patient has undergone prior cholecystectomy Allergies Allergy/AdvReac Type Severity Reaction Status Date / Time No Known Allergies Allergy Verified 10/09/21 15:40 Home Medications Medication Instructions Recorded Confirmed Type aspirin 81 mg chewable tablet 81 mg PO DAILY 04/24/21 08/15/22 History carvedilol 3.125 mg tablet (Coreg) 3.125 mg PO BID 04/24/21 08/15/22 History rosuvastatin 10 mg tablet (Crestor) 10 mg PO DAILY 04/24/21 08/15/22 History levothyroxine 25 mcg tablet 25 mcg PO DAILY #90 tabs 06/03/22 08/15/22 Rx (Synthroid) Patient History Medical History Bradycardia Cholelithiasis Family history of heart disease Hiatal hernia Hyperlipidemia Hypotension Hypothyroidism Viral cardiomyopathy Surgical History History of cholecystectomy History of hysterectomy Social History Smoking Status: Never smoker Hx Alcohol Use: No Hx Substance Use: No Preferred Language: Turkish Communication Ability: Effective Electronic Security Technician Required: No Beliefs That Will Affect Care: None Current Living Situation: Alone Feels Safe at Home: Yes Review of Systems Review of Systems: All systems reviewed & are unremarkable except as noted in HPI & below Physical Exam Physical Exam: Patient is awake and alert sitting up in bed and eating her clear liquid breakfast Constitutional: well developed and well nourished; no acute distress Eyes: + anicteric sclerae Respiratory: normal respiratory effort; no respiratory distress Cardiovascular: Rate/Rhythm: regular rate Gastrointestinal (Abdomen): Nondistended Musculoskeletal: Gait: normal gait Skin: no rashes, warm and dry Neurologic: awake Psychiatric: Orientation: alert Results & Data ([facility]) Vital Signs (Past 12 Hours) Vital Signs Temp Pulse Resp BP Pulse Ox O2 Del Method 08/16/22 07:42 36.9 C 63 16 95/61 L 98 Room Air 08/16/22 05:06 72 96 Room Air 08/15/22 22:02 36.9 C 87 16 97/60 L 95 Room Air Laboratory Results I did review her laboratories Diagnostic Findings I did review her CAT scan and report PG Care Time/CCT Total # of Minutes Spent Total Time Spent with Patient: Total time spent is greater than 50% in coordination of care (as documented) at patient's floor/unit and/or counseling patient: Coding Level of Care Code INP/OBS CONSULT LVL 2, 35 MIN Diagnoses Pancreatitis K85.90
[2022-08-16] MEDS ORDERED: cefTRIAXone SODIUM 2,000 MG in DEXTROSE 5% 50 ML IV SCH (14:00)
--- NOTE | 2022-08-16 21:28 | Electrocardiogram Report ---
Test Reason : Blood Pressure : / mmHG Vent. Rate : 063 BPM Atrial Rate : 063 BPM P-R Int : 164 ms QRS Dur : 070 ms QT Int : 418 ms P-R-T Axes : 065 038 036 degrees QTc Int : 427 ms Normal sinus rhythm Low voltage QRS Borderline ECG No previous ECGs available Confirmed by Dex Purdy ([id number]) on 08/16/2022 9:28:10 PM Referred By: REFERRED SELF Confirmed By:Dex Purdy
--- NOTE | 2022-08-16 21:44 | Hospitalist Progress Note ---
Date of Service August 16, 2022 Assessment & Plan (1) Acute pancreatitis: Plan: Suspected biliary pancreatitis - no abnormality seen on CT (?due to acute onset and passed stone) likely passed given pain reduction however warrants EGD regardless given second episode in a week without a gallbladder and suspected esophageal stricture stricture causing esophageal dysphagia on a more chronic basis. NSS 1L bolus given in ER. Additional 1L LR bolus now then 200ml/hr overnight. Patient is not septic appearing and WBC normal however given obstruction will cover with antibiotic prophylaxis with ceftriaxone and metronidazole Morphine 2 mg IV every 2 hourly as needed for pain Ondansetron 4 mg IV every 4 hourly as needed for nausea or vomiting Triglycerides added to labs for completeness -however low suspicion of this. Repeat LFTs in AM MRCP Consult gastroenterology. Plan for ERCP on 08/17 Pain improved, will monitor. lipase improved. (2) Cholelithiasis: Plan: Suspected passed stone. MRCP as above (3) Transaminitis: Plan: Suspect from biliary obstruction as above (4) Esophageal dysphagia: Plan: Slow progressive worsening Suspected stricture since she had dilatation previously 5-6 years ago. (5) Hypothyroidism: Plan: Holding levothyroxine while NPO (6) Hyperlipidemia: Plan: Holding rosuvastatin while NPO Plan VTE Prophylaxis - low risk Diet - NPO except sips, ice chips and meds Disposition - admit to [facility] Admission and Anticipated Discharge Date Admission Date: August 15, 2022 Subjective 52 yo female reports feeling well. She has no new complaints. Her abdominal pain has improved Review of Systems Review of Systems: All systems reviewed & are unremarkable except as noted in HPI & below Physical Exam Physical Exam: Constitutional: WD/WN, vitals as above Respiratory: normal respiratory effort, lungs clear to auscultation Cardiovascular: RRR, no murmur, no edema Gastrointestinal (Abdomen): normal bowel sounds, soft, nontender, no hepatosplenomegaly Inspection/Auscultation: abdomen not distended Musculoskeletal: no cyanosis or clubbing, extremities motor strength 5/5 Skin: no rashes, warm and dry Psychiatric: A+Ox3, euthymic affect Results & Data Results & Data ([facility]) Vital Signs (Past 12 Hours) Vital Signs Temp Pulse Resp BP Pulse Ox O2 Del Method 08/16/22 15:37 36.7 C 66 16 106/71 98 Room Air PG Care Time/CCT Total # of Minutes Spent Total Time Spent with Patient: Total time spent is greater than 50% in coordination of care (as documented) at patient's floor/unit and/or counseling patient: Coding Level of Care Code 01916 SUB INP/OBS CARE MIN Diagnoses Acute pancreatitis K85.90 Cholelithiasis K80.20 Transaminitis R74.01 Esophageal dysphagia R13.19 Hypothyroidism E03.9 Hyperlipidemia E78.5
[2022-08-17] MEDS: LACTATED RINGER'S 1,000 ML IV SCH (02:04)
[2022-08-17] MEDS: metroNIDAZOLE 500 MG/100 ML BAG IV SCH (04:58)
[2022-08-17 07:33] LABS: Mean Corpuscular Hemoglobin 29.5 pg (25.0-34.0); Mean Corpuscular Hgb Conc 33.3 g/dL (32.0-36.0); Mean Corpuscular Volume 88.5 fL (80.0-100.0); Platelet Count 241 K/uL (130-400); RDW Standard Deviation 42.5 fL (36.4-46.3); Red Blood Count 4.07 M/uL (3.93-5.22); White Blood Count 4.77 K/ul (4.8-10.8)
[2022-08-17 07:55] LABS: Albumin Globulin Ratio 1.4 (0.9-2); Albumin Level 3.6 gm/dl (3.4-5.0); BUN Creatinine Ratio 9.7 (10-20); Bilirubin,Total 0.7 mg/dl (0.2-1.0); Calcium 9.1 mg/dl (8.5-10.1); Creatinine Clr Calc Pharmacy 118.4 ml/min; Est GFR (African American) 118.5 ml/min; Est GFR (Non-African American) 102.2 ml/min; Globulin 2.6 gm/dl (2.5-4.0); Potassium 3.6 mmol/L (3.5-5.1); Total Protein 6.2 gm/dl (6.0-8.3)
--- NOTE | 2022-08-17 08:11 | Communication Note ---
Date of Service: August 17, 2022 Case was discussed with Dr. Hernandez. Review of MRCP shows no acute abnormality or evidence of choledocholithiasis. Given the improvement of her liver function test, will cancel EUS today. Would repeat LFTs as an OP in 1 weeks time. If persistent elevation, can arrange OP EUS.
--- NOTE | 2022-08-23 15:50 | Discharge Summary ---
Date of Service August 17, 2022 Admission HPI Per Admitting Provider Deb Olivas 52 year old female who presents to ER with epigastric pain. She has had 2 episodes of this. Her previous episode started on Wednesday (3 days ago) lasting for approximately 12 hours and resolved by itself. Her second episode started at 2 AM this morning. She reports epigastric pain. Started on Wednesday, then again at 2 this morning. Pain is epigastric but radiates through to her back. Severity 9 out of 10. No relief with Tums. Pain was sharp and coming on in waves. Associated violent vomiting with yellow liquid. She has never had similar episodes in the past. This is on a background of esophageal dysphagia for the last 6 months with food getting stuck. Does not happen with liquids. Occasionally this leads to her vomiting. She reports previously having esophageal dysphagia and required an EGD and dilatation approximately 5 to 6 years ago. She reports cholecystectomy in 2015 which was removed for biliary colic planning as an elective operation. 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 In the ER she was given normal saline 1 L bolus and morphine 4 mg IV which completely resolved her pain. Principal Diagnosis acute pancreatitis Discharge Exam Constitutional: WD/WN, vitals as above Respiratory: normal respiratory effort, lungs clear to auscultation Cardiovascular: RRR, no murmur, no edema Gastrointestinal (Abdomen): normal bowel sounds, soft, nontender, no hepatosplenomegaly Inspection/Auscultation: abdomen not distended Musculoskeletal: no cyanosis or clubbing, extremities motor strength 5/5 Skin: no rashes, warm and dry Psychiatric: A+Ox3, euthymic affect Discharge Data Allergies Allergy/AdvReac Type Severity Reaction Status Date / Time No Known Allergies Allergy Verified 10/09/21 15:40 Consultations 08/15/22 10:10 ED Decision to Admit Stat 08/15/22 14:25 Consult Gastroenterology Routine 08/16/22 11:25 Consult General Surgery Routine Ordered Studies 08/15/22 07:33 CT abd pelvis IV con only Stat 08/15/22 10:13 MR MRCP Stat Hospital Course (1) Acute pancreatitis: Suspected biliary pancreatitis - no abnormality seen on CT (?due to acute onset and passed stone) likely passed given pain reduction however warrants EGD regardless given second episode in a week without a gallbladder and suspected esophageal stricture stricture causing esophageal dysphagia on a more chronic basis. NSS 1L bolus given in ER. Additional 1L LR bolus now then 200ml/hr overnight. Patient is not septic appearing and WBC normal however given obstruction will cover with antibiotic prophylaxis with ceftriaxone and metronidazole Morphine 2 mg IV every 2 hourly as needed for pain Ondansetron 4 mg IV every 4 hourly as needed for nausea or vomiting Triglycerides added to labs for completeness -however low suspicion of this. Consult gastroenterology. Planned for ERCP on 08/17, however patient's pain improved and LFTs also improved. GI recommends outpatient Blood work in 1 week. Depending on following, will obtain imaging. (2) Cholelithiasis: Suspected passed stone. (3) Transaminitis: Suspect from biliary obstruction as above (4) Esophageal dysphagia: Slow progressive worsening Suspected stricture since she had dilatation previously 5-6 years ago. (5) Hypothyroidism: Holding levothyroxine while NPO Resume and continue at discharge (6) Hyperlipidemia: Holding rosuvastatin while NPO resumed at discharge Plan VTE Prophylaxis - low risk Total Time Total Time Spent Total Time Spent (In Minutes): 35 Discharge Plan Discharge Items Patient Disposition: Home - Self-Care Reason For Visit: ACUTE PANCREATITIS,SUSPECTED CHOLELITHIASIS Discharge Diagnosis: Acute Pancreatitis Activity: Resume your previous activity Non-emergency contact: Primary Care Provider Call non-emergency contact if: you have any medication questions Follow-up/Referrals: Sabrina Hernandez MD [Physician] - (PATIENT CALL FOLLOW UP NEEDED AN OUTPATIENT.) Liang Calvin PA-C [Primary Care Provider] - 08/24/22 11:00 am (APPT WITH DR Theresa KAM FOR HOSPITAL FOLLOW UP VISIT) Diet: Low Fat Addtl Attending Provider Instructions: You were admitted with abdominal pain and an elevated lipase. Initial plan was to do a endoscopic ultrasound on Wednesday. Thankfully, your blood work improved and your symptoms subsided and the [employer] [facility] whom was to do the procedure, recommended to cancel the procedure and to have you followup with them as an outpatient. [facility] recommends outpatient liver function test in 1 week. Depending on the result, will then consider doing the endoscopic ultrasound. Pending Studies at Discharge: No Stand-Alone Forms: [employer] Smoking Cessation Medications and DC Order Prescriptions: Continued levothyroxine [Synthroid] 25 mcg tablet 25 mcg PO DAILY Qty: 90 3RF aspirin 81 mg tablet,chewable 81 mg PO DAILY rosuvastatin [Crestor] 10 mg tablet 10 mg PO DAILY carvedilol [Coreg] 3.125 mg tablet 3.125 mg PO BID Rx Instructions: must administer with a meal/food Discharge Orders: Discharge Order (Routine); Ordered 08/17/22 Ordered By: Gera Antonio Admission Data Admit Date/Time: 08/15/22 10:37 Attending Provider: Gera Antonio Admit Provider: Stiven Ta Primary Care Provider: Liang Calvin Other Providers: Stiven Ta ; Lewis Irizarry ; Charles Dugan Other Interventions: Discharge Summary Assessment (RN) Last Done: 08/17/22 10:25 Coding Level of Care Code HOSP INP/OBS DISCH >30 MIN Diagnoses Acute pancreatitis K85.90 Cholelithiasis K80.20 Transaminitis R74.01 Esophageal dysphagia R13.19 Hypothyroidism E03.9 Hyperlipidemia E78.5
--- NOTE | 2022-08-25 15:48 | Coding Query ---
PATHOLOGY To promote full compliance with coding requirements relating to patient care, physician participation is requested in all cases of cuffing machine operator uncertainty. Please assist us with the question(s) below: Please review the microbiology report and please document any relevant diagnosis(es) below: Diagnosis(es): Asymptomatic Bacteruria. Thank you for your time, SARAI Nickerson, [facility]
== END 2022-08-17 10:42 | disposition home or self-care (01) | DRG 440 ==
LOC: ED 07:09 → EDINP 10:37 → SUATTDRO 10:37 → 3W 14:25

== ENCOUNTER 2024-10-07 11:55 | Inpatient (IN) ==
--- NOTE | 2024-10-07 12:21 | Emergency Department Note ---
History of Present Illness General Chief Complaint: Shortness of Breath/Dyspnea Stated Complaint: SOB, HEAVY LIMBS Time Seen by Provider: 10/07/24 12:06 History of Present Illness Provider Complaint: shortness of breath Onset (ago): day(s) (2) Consistency/Duration: + progressively worsening Relieved By: + nothing Exacerbated By: + nothing Known history of: congestive heart failure Associated symptoms: + cough; no chest pain, no fever, no wheezing, no sputum production, no orthopnea, no hemoptysis, no abdominal pain, no rash or no chest congestion Home Medications Medication Instructions Recorded Confirmed Type aspirin 81 mg chewable tablet 81 mg PO QAM 04/24/21 10/07/24 History pantoprazole 40 mg tablet,delayed 40 mg PO QAM #90 tabs 05/09/24 10/07/24 Rx release carvedilol 3.125 mg tablet (Coreg) 3.125 mg PO BIDWMEAL 10/07/24 10/07/24 History estradiol 2 mg tablet 2 mg PO QAM 10/07/24 10/07/24 History levothyroxine 25 mcg tablet 37.5 mcg PO DAILYBB 10/07/24 10/07/24 History (Synthroid) rosuvastatin 5 mg tablet 5 mg PO HS 10/07/24 10/07/24 History Allergies Allergy/AdvReac Type Severity Reaction Status Date / Time No Known Allergies Allergy Verified 10/07/24 13:58 Past Med/Surg History Problem List (Updated 10/07/24 @ 19:30 by Luis Treviño MD) Pneumonia (Acute) Dehydration Influenza A (Acute) Community acquired bacterial pneumonia Elevated troponin Schatzki's ring of distal esophagus Esophageal dysphagia Encounter for pre-operative examination Family history of heart disease Acute pancreatitis (Acute) Transaminitis (Acute) Epigastric abdominal pain (Acute) Cholelithiasis Esophageal dysphagia Pancreatitis GERD (gastroesophageal reflux disease) Hypothyroidism (Chronic) Hyperlipidemia (Chronic) Medical History Viral cardiomyopathy hx History of CHF (congestive heart failure) follows with Dr. Moss. History of esophageal dilatation GERD (gastroesophageal reflux disease) Dysphagia Surgical History History of colonoscopy History of esophagogastroduodenoscopy (EGD) History of hysterectomy History of cholecystectomy Social History Smoking Status: Never smoker Second Hand Exposure: No; Do You Dip or Chew Tobacco: No; Hx Alcohol Use: No Hx Substance Use: No Preferred Language: Polish Communication Ability: Effective Generator Technician Required: No Beliefs That Will Affect Care: None Current Living Situation: Alone Feels Safe at Home: Yes Assistive Devices: None Physical Exam 2 Vital Signs: Vital Signs - 24 hr 10/07/24 11:58 10/07/24 12:16 10/07/24 12:20 Temperature 36.4 C L Temperature Source Temporal Artery Sc an Pulse Rate 113 H 90 Pulse Rate [Apical ] Respiratory Rate 22 Respiratory Effort / Characteristics Non-Labored Sponta neous Respiratory Depth Normal Respiratory Patter n Regular Blood Pressure 113/79 Blood Pressure [Ri ght Arm] Blood Pressure Jennifer n 90 Blood Pressure Jennifer n [Right Arm] Blood Pressure Pos ition [Right Arm] Pulse Oximetry 95 95 Oxygen Delivery Me thod Room Air Room Air Sepsis Recent Feve r Within 48 Hours No Sepsis New/Unexpla ined Change in Men nava Status No Sepsis Action Take n by Nursing Physician Notified 10/07/24 12:20 10/07/24 12:20 10/07/24 14:27 Temperature Temperature Source Pulse Rate Pulse Rate [Apical ] 94 H 90 Respiratory Rate 20 20 Respiratory Effort / Characteristics Non-Labored Non-Labored Sponta neous Respiratory Depth Normal Normal Respiratory Patter n Blood Pressure Blood Pressure [Ri ght Arm] 92/58 L Blood Pressure Jennifer n Blood Pressure Jennifer n [Right Arm] 69 Blood Pressure Pos ition [Right Arm] Lying Pulse Oximetry 97 97 96 Oxygen Delivery Me thod Room Air Room Air Room Air Sepsis Recent Feve r Within 48 Hours Sepsis New/Unexpla ined Change in Men nava Status Sepsis Action Take n by Nursing Physical Exam: Physical Exam GENERAL: oriented to person, place, and time. appears well-developed and well- nourished. HENT: Exam performed. - Head: Normocephalic and atraumatic. EYES: Conjunctivae and EOM are normal. Right eye exhibits no discharge. Left eye exhibits no discharge. No scleral icterus. NECK: Normal range of motion. Neck supple. No JVD present. CV: Normal rate, regular rhythm, normal heart sounds and intact distal pulses. Palpable radial pulses bue. PULM/CHEST: Effort normal and breath sounds normal. No respiratory distress. No stridor. no wheezes. no rales. ABD: The abdomen is soft. There is no tenderness. NEURO: Motor and sensation grossly intact. SKIN: Skin is warm and dry. He is not diaphoretic. PSYCH: normal mood and affect. Behavior is normal. Judgment and thought content normal. Course Course 1206: The patient was evaluated in room A2. A complete history and physical exam was performed Cardiac monitoring: An order was placed for continuous cardiac monitoring. The monitor shows a rate of 90 with sinus rhythm interpreted by oh 1321: Vital signs stable. Elevated D-dimer. Will obtain CT of the chest. 1401: Vital signs stable. Labs showed a high-sensitivity troponin of 3411. BNP 304. CT of the chest negative for PE but does show early lower lobe pneumonia. Patient is influenza positive. Patient will be treated with Tamiflu as her symptoms began 48 hours ago. Broad-spectrum antibiotics Zosyn and vancomycin vancomycin to cover against any staph pneumonia given the patient is influenza positive. Given the patient's elevated troponin heparin bolus and drip ordered for the patient. [facility]. Administered Medications Carvedilol (Carvedilol 3.125 Mg Tab) 3.125 mg PO BIDM [facility] Stop: 11/06/24 17:00 Last Admin: 10/07/24 18:09 Dose: 3.125 mg Documented By: TREVON Heparin Sodium/Dextrose (Heparin 98464 Unit/500 Ml D5w) 25,000 units in 500 mls @ 27 mls/hr IV .[id number] [facility]; Protocol Stop: 11/06/24 14:14 Last Titration: 10/07/24 19:02 Dose: 1,350 units/hr, 27 mls/hr Documented By: MONALISA Co-signed By: TREVON Admin: 10/07/24 14:42 Dose: 1,350 units/hr, 27 mls/hr Documented By: ANASTACIA Co-signed By: QGV Ceftriaxone Sodium (Rocephin) 2,000 mg in 50 mls @ 100 mls/hr IV Q24H [facility] Stop: 10/12/24 17:59 Last Infusion: 10/07/24 18:38 Dose: Infused Documented By: Admin: 10/07/24 18:08 Dose: 100 mls/hr Documented By: TREVON Sodium Chloride (Nss) 1,000 mls @ 100 mls/hr IV .Q10H [facility] Stop: 10/08/24 17:00 Last Admin: 10/07/24 17:37 Dose: 100 mls/hr Documented By: TREVON Discontinued Medications Azithromycin (Azithromycin 250 Mg Tab) 500 mg PO NOW ONE Stop: 10/07/24 17:02 Last Admin: 10/07/24 18:09 Dose: 500 mg Documented By: TREVON Heparin Sodium (Porcine) (Heparin Sod (Porcine) 1000 Unit/Ml) 1 units IV NOW ONE Stop: 10/07/24 14:14 Last Admin: 10/07/24 14:42 Dose: 6,000 units Documented By: ANASTACIA Co-signed By: QGV Heparin Sodium/Dextrose (Heparin Iv Adult Wt-Based Standard W/ Initial Bolus Protocol) 1 each IV NOW STA; Protocol Stop: 10/07/24 13:58 Last Admin: 10/07/24 14:42 Dose: 1 each Documented By: ANASTACIA Vancomycin HCl 2,000 mg/ (Sodium Chloride) 540 mls @ 200 mls/hr IV NOW ONE Stop: 10/07/24 16:38 Last Infusion: 10/07/24 17:32 Dose: Infused Documented By: Admin: 10/07/24 14:25 Dose: 200 mls/hr Documented By: ANASTACIA Sodium Chloride (Nss) 500 mls @ 999 mls/hr IV .Q31M ONE Stop: 10/07/24 15:40 Last Admin: 10/07/24 17:24 Dose: Not Given Documented By: TREVON Ioversol (Optiray 320 125ml) 70 ml IV ONCE ONE Stop: 10/07/24 13:40 Last Admin: 10/07/24 13:39 Dose: 70 ml Documented By: JEWELL Miscellaneous Information (Vancomycin Consult Active) 1 each N/A UD PRN PRN Reason: Consult Stop: 11/06/24 13:56 Last Admin: 10/07/24 14:42 Dose: 1 each Documented By: ANASTACIA Oseltamivir Phosphate (Oseltamivir Phosphate Susp 75 Mg/12.5 Ml Udp) 75 mg PO NOW STA Stop: 10/07/24 14:02 Last Admin: 10/07/24 14:25 Dose: 75 mg Documented By: ANASTACIA Medical Decision Making Laboratory Data Attestation: I reviewed the patient's lab results. 10/07/24 12:06 10/07/24 12:06 Lab Results 10/07/24 10/07/24 Range/Units 12:06 12:19 WBC 6.23 (4.8-10.8) K/ul RBC 5.61 H (4.20-5.40) M/uL Hgb 16.2 H (12.0-16.0) g/dl Hct 48.0 H (37.0-47.0) % MCV 85.6 (80.0-100.0) fL MCH 28.9 (25.0-34.0) pg MCHC 33.8 (32.0-36.0) g/dL RDW Std Deviation 39.9 (36.4-46.3) fL RDW Coeff of Serina 12.8 (11.5-14.5) % Plt Count 220 (130-400) K/uL MPV 10.9 (9.4-12.4) fL Immature Gran % (Auto) 0.3 % Neut % (Auto) 58.8 % Lymph % (Auto) 33.9 % [place] % (Auto) 5.9 % Eos % (Auto) 0.6 % Baso % (Auto) 0.5 % Neut # (Auto) 3.66 (1.40-6.50) K/uL Lymph # (Auto) 2.11 (1.20-3.40) K/uL [place] # (Auto) 0.37 (0.11-0.59) K/uL Eos # (Auto) 0.04 (0.00-0.50) K/uL Baso # (Auto) 0.03 (0.00-0.20) K/uL Immature Gran # (Auto) 0.02 (0.01-0.20) K/uL Toxic Vacuolation 2+ Polychromasia 1+ PT 10.8 (9.0-12.0) Seconds INR 1.0 (0.9-1.1) APTT 28 (21-31) Seconds PTT Ratio 1.0 D-Dimer 850 H* (0-500) ug/L FEU Sodium 135 L (136-145) mmol/L Potassium 3.7 (3.5-5.1) mmol/L Chloride 103 (98-107) mmol/L Carbon Dioxide 24 (21-32) mmol/L Anion Gap 8 (3-11) BUN 13 (6-23) mg/dl Creatinine 0.75 (0.6-1.2) mg/dl Est Cr Clr Drug Dosing 99.0 ml/min eGFR 93.38 BUN/Creatinine Ratio 17.3 (10-20) Glucose 132 H (70-99(Fasting)) mg/dl Calcium 8.5 L (8.6-10.3) mg/dl Troponin I High Sens 3411.4 H* (0-14) pg/ml B-Natriuretic Peptide 304 H (0-100) pg/ml Lipase 14 (11-82) U/L SARS-CoV-2 (PCR) NEGATIVE (Negative) Influenza Type A (PCR) Positive A (Neg) Influenza Type B (PCR) Negative (Neg) RSV (RT-PCR) Negative (Neg) Imaging Data Attestation: I personally reviewed and interpreted this imaging study as follows: My Impression: Chest x-ray negative. Airway clear. No pneumothorax. No consolidation. No cardiomegaly or cephalization.. No free air under the diaphragm. No fractures of the skeletal structures. Radiologist's Impression: Chest X-Ray 10/07/24 12:13 XR chest 1V portable CLINICAL HISTORY: Chest pain, nonspecific COMPARISON STUDY: 08/15/2022 FINDINGS: Heart size and pulmonary vasculature are normal. Inspiration is shallow. No effusion, consolidation, or pneumothorax. IMPRESSION: Shallow inspiration. Otherwise no acute findings. ACT 112: Negative or not required by law. Electronically signed by: Quang Fernando M.D. 10/07/2024 12:50 PM Chest CTA 10/07/24 13:21 CT angio chest PE protocol CT DOSE: 748.07 mGy.cm HISTORY: ro PE. TECHNIQUE: Multiple CTA images of the chest were obtained after the intravenous administration of 70 ml Optiray. Coronal and sagittal MIPS were obtained from the axial data set and were submitted for review. All measurements were obtained according to NASCET criteria. A dose lowering technique was utilized adhering to the principles of ALARA. COMPARISON STUDY: None FINDINGS: There is mild patchy opacity in the posterior lower lung lobes consistent with early pneumonia. No pleural effusion or pneumothorax. No enlarged adenopathy. No pericardial effusion. There is fatty liver. No pulmonary embolism. No thoracic aortic aneurysm. No acute osseous findings. IMPRESSION: 1. No pulmonary embolism 2. Early lower lobe pneumonia. ACT 112: Negative or not required by law. The above report was generated using voice recognition software. It may contain grammatical, syntax or spelling errors. Electronically signed by: Quang Fernando M.D. 10/07/2024 1:52 PM ECG Data Attestation: I personally reviewed and interpreted this ECG as follows: Interpretation: Sinus rhythm with a rate of 95. NJ 140 QRS [address] elevation or ST depression. [facility] Narrative 1206: The patient was evaluated in room A2. A complete history and physical exam was performed Cardiac monitoring: An order was placed for continuous cardiac monitoring. The monitor shows a rate of 90 with sinus rhythm interpreted by oh 1321: Vital signs stable. Elevated D-dimer. Will obtain CT of the chest. 1401: Vital signs stable. Labs showed a high-sensitivity troponin of 3411. BNP 304. CT of the chest negative for PE but does show early lower lobe pneumonia. Patient is influenza positive. Patient will be treated with Tamiflu as her symptoms began 48 hours ago. Broad-spectrum antibiotics Zosyn and vancomycin vancomycin to cover against any staph pneumonia given the patient is influenza positive. Given the patient's elevated troponin heparin bolus and drip ordered for the patient. [facility]. Impression & Plan Influenza A, Pneumonia Critical Care Time Critical Care Time: Yes Total Critical Care Time: 65 I have personally spent greater than 65 minutes of critical care time in the direct management of this patient. This includes bedside care, interpretation of diagnostic studies, and testing, discussion with consultants, patient, and family members, and other required patient management activities. This 65 minutes is in excess of all separately billable procedures. Discharge Plan Visit Data Chief Complaint: Shortness of Breath/Dyspnea Stated Complaint: SOB, HEAVY LIMBS ED Provider: Luis Treviño Discharge Problem: Influenza A, Pneumonia Patient Disposition: Admitted As Inpatient Discharge Instructions Interventions: ED Discharge Assessment Last Done: 10/07/24 14:51 Discharge Problem: Pneumonia Qualifiers: Pneumonia type: due to unspecified organism Laterality: unspecified laterality Lung location: unspecified part of lung Qualified Code(s): J18.9 - Pneumonia, unspecified organism
[2024-10-07 12:36] LABS: Hemoglobin 16.2 g/dl (12.0-16.0); Mean Corpuscular Hemoglobin 28.9 pg (25.0-34.0); Mean Corpuscular Hgb Conc 33.8 g/dL (32.0-36.0); Mean Corpuscular Volume 85.6 fL (80.0-100.0); Mean Platelet Volume 10.9 fL (9.4-12.4); Platelet Count 220 K/uL (130-400); RDW Coefficient of Variation 12.8 % (11.5-14.5); RDW Standard Deviation 39.9 fL (36.4-46.3); Red Blood Count 5.61 M/uL (4.20-5.40); White Blood Count 6.23 K/ul (4.8-10.8)
--- NOTE | 2024-10-07 12:51 | XRay Report ---
XR chest 1V portable CLINICAL HISTORY: Chest pain, nonspecific COMPARISON STUDY: 08/15/2022 FINDINGS: Heart size and pulmonary vasculature are normal. Inspiration is shallow. No effusion, conso lidation, or pneumothorax. IMPRESSION: Shallow inspiration. Otherwise no acute findings. ACT 112: Negative or not required by law. Electronically signed by: Quang Fernando M.D. 10/07/2024 12:50 PM
[2024-10-07 12:52] LABS: BUN Creatinine Ratio 17.3 (10-20); Calcium 8.5 mg/dl (8.6-10.3); Potassium 3.7 mmol/L (3.5-5.1)
[2024-10-07 13:01] LABS: Partial Thromboplastin Time 28 Seconds (21-31); Prothrombin Time 10.8 Seconds (9.0-12.0)
[2024-10-07 13:05] LABS: Troponin I High Sensitivity 3411.4 pg/ml (0-14)
[2024-10-07 13:08] LABS: Basophils # (auto) 0.03 K/uL (0.00-0.20); Basophils % (auto) 0.5 %; Eosinophils # (auto) 0.04 K/uL (0.00-0.50); Eosinophils % (auto) 0.6 %; Immature Granulocytes # (auto) 0.02 K/uL (0.01-0.20); Immature Granulocytes % (auto) 0.3 %; Lymphocytes # (auto) 2.11 K/uL (1.20-3.40); Lymphocytes % (auto) 33.9 %; Monocytes # (auto) 0.37 K/uL (0.11-0.59); Monocytes % (auto) 5.9 %; Neutrophils # (auto) 3.66 K/uL (1.40-6.50); Neutrophils % (auto) 58.8 %; Polychromasia 1+; Toxic Vacuolation 2+
[2024-10-07 13:11] LABS: Influenza A virus by PCR Positive (Neg); Influenza B virus by PCR Negative (Neg); RSV by PCR Negative (Neg); SARS CoV2 RNA(COVID-19) Ceph NEGATIVE (Negative)
[2024-10-07 13:28] LABS: D Dimer 850 ug/L FEU (0-500)
[2024-10-07] MEDS: OPTIRAY 320 125ml IV ONE (13:39)
--- NOTE | 2024-10-07 13:54 | CT Scan Report ---
CT angio chest PE protocol CT DOSE: 748.07 mGy.cm HISTORY: ro PE. TECHNIQUE: Multiple CTA images of the chest were obtained after the intravenous administration of 70 ml Optiray. Coronal and sagittal MIPS were obtained from the axial data set and were submitted for r eview. All measurements were obtained according to NASCET criteria. A dose lowering technique was ut ilized adhering to the principles of ALARA. COMPARISON STUDY: None FINDINGS: There is mild patchy opacity in the posterior lower lung lobes consistent with early pneumo giuliana. No pleural effusion or pneumothorax. No enlarged adenopathy. No pericardial effusion. There is f atty liver. No pulmonary embolism. No thoracic aortic aneurysm. No acute osseous findings. IMPRESSION: 1. No pulmonary embolism 2. Early lower lobe pneumonia. ACT 112: Negative or not required by law. The above report was generated using voice recognition software. It may contain grammatical, syntax o r spelling errors. Electronically signed by: Quang Fernando M.D. 10/07/2024 1:52 PM
[2024-10-07] MEDS ORDERED: PIPERACILLIN/TAZOBACTAM 4.5 GM/120 ML BAG IV ONE (13:57)
[2024-10-07] MEDS: OSELTAMIVIR PHOSPHATE SUSP 75 MG/12.5 ML UDP PO STA (14:25)
[2024-10-07] MEDS: VANCOMYCIN HCL 2,000 MG in SODIUM CHLORIDE 0.9% 500 ML IV ONE (14:25)
[2024-10-07] MEDS: HEPARIN SOD (PORCINE) 1000 UNIT/ML IV ONE (14:42)
[2024-10-07] MEDS: VANCOMYCIN CONSULT ACTIVE PRN (14:42)
[2024-10-07] MEDS: HEPARIN 25000 UNIT/500 ML D5W 25,000 UNITS/500 ML BAG IV SCH (14:42)
[2024-10-07] MEDS: Heparin IV Adult Wt-Based Standard w/ INITIAL Bolus Protocol IV STA (14:42)
--- NOTE | 2024-10-07 15:06 | History & Physical Report ---
Date of Service October 07, 2024 Assessment & Plan (1) Community acquired bacterial pneumonia: Plan: Acute bilateral in setting of acute influenza A infection - Admit to PCU (d/t elevated troponin) - VS per unit protocol - Heart healthy diet - Labs revealed, no leukocytosis and pt is afebrile. Defer blood cultures. - D/C Zosyn and Vancomycin. Tx for CAP with Rocephin 2g IV daily and Zithromax 500mg x1 and then 250mg x4 doses. Will start with first dose of each this evening. - Add Mucinex 600mg BID and Duonebs QIDR and q2 prn dyspnea/wheezing (2) Influenza A: Plan: Acute (flu-like sx started last Wednesday, 10/01) - Pt is outside of the window for Tamiflu. Given a dose in ER. No further doses ordered. - Recommended yearly flu vaccination. 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 - Heparin bolus and gtt initiated in ED, will continue - Admit to monitored bed, update TTE - Consult cardiology, pt follows with Dr. Moss. Dr. Orosco is covering this weekend. Appreciate assistance. - Continue rosuvastatin, aspirin, and coreg (4) Dehydration: Plan: Acute in setting of viral illness, pt endorses poor PO intake over the past week - No fluids given in ER, pt with H/H of 16.2 and 48 respectively. Renal fxn WNL. Na 135. - BP dropped in ED to 92/58 - Ordered bolus of NSS 500 mL x1 and mIVF of NSS at 100ml/hr x 24 hours Plan Chronic medical problems: 1. GERD - continue protonix 2. hypothyroidism - continue levothyroxine 3. Chronic HRT - continue estradiol as there is no evidence of PE on CTA chest DVT ppx covered with heparin gtt. AM labs have been ordered. Above plan of care has been d/w Dr. Jones. Further orders will be implemented as warranted by attending. History of Present Illness Chief Complaint: Dyspnea Primary Care Provider: Liang Calvin PA-C Deb is a 54 yo F with a pmhx of viral induced cardiomyopathy (resolved) who follows with Dr. Moss, hyperlipidemia, and hypothyroidism who presents to the ER today c/o increased dyspnea. Pt reports that she developed flu-like symptoms including fever, chills and body aches last Wednesday (7 days ago). She never tested herself. She continued to feel poorly throughout the week, however, over the past two days she had increased dyspnea with minimal exertion. She also continues to have cough that is occasionally productive of scant amount of sputum. She denies wheezing. She endorses that her limbs feel "heavy" and she describes "heaviness" sensation in her chest. She did not get her flu vaccine this year. She has not been recently hospitalized or on any antibiotic therapy. Her last visit with Dr. Moss was last December 2023 and her last echo was at that time as well with an EF of 60-65%. Her ER w/u today is notable for being positive for influenza A, having an elevated high sensitivity troponin of 3411 and an elevated d-dimer of 850. She underwent CTA chest which was negative for PE but significant for bilateral lower lobe infiltrates c/w pneumonia. She was medicated with a dose of Zosyn, Vancomycin, received a heparin bolus and was started on a heparin gtt due to her elevated troponin c/f NSTEMI. She also received a dose of tamiflu 75mg pox1. She has been referred to the hospital medicine team for admission. Allergies Allergy/AdvReac Type Severity Reaction Status Date / Time No Known Allergies Allergy Verified 10/07/24 13:58 Home Medications Medication Instructions Recorded Confirmed Type aspirin 81 mg chewable tablet 81 mg PO QAM 04/24/21 10/07/24 History pantoprazole 40 mg tablet,delayed 40 mg PO QAM #90 tabs 05/09/24 10/07/24 Rx release carvedilol 3.125 mg tablet (Coreg) 3.125 mg PO BIDWMEAL 10/07/24 10/07/24 History estradiol 2 mg tablet 2 mg PO QAM 10/07/24 10/07/24 History levothyroxine 25 mcg tablet 37.5 mcg PO DAILYBB 10/07/24 10/07/24 History (Synthroid) rosuvastatin 5 mg tablet 5 mg PO HS 10/07/24 10/07/24 History Past Med/Surg History Problem List (Updated 10/07/24 @ 15:15 by Carly A. Carreon, PA-C) Dehydration Influenza A Community acquired bacterial pneumonia Elevated troponin Schatzki's ring of distal esophagus Esophageal dysphagia Encounter for pre-operative examination Family history of heart disease Acute pancreatitis (Acute) Transaminitis (Acute) Epigastric abdominal pain (Acute) Cholelithiasis Esophageal dysphagia Pancreatitis GERD (gastroesophageal reflux disease) Hypothyroidism (Chronic) Hyperlipidemia (Chronic) Medical History Viral cardiomyopathy hx History of CHF (congestive heart failure) follows with Dr. Moss. 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 Denies fever, chills, fatigue, headache, nasal congestion, sore throat, chest pain, palpitations, orthopnea, PND, abdominal pain, n/v/d, constipation, dysuria, hematuria, frequency, back pain, joint pain or swelling, easy bruising or bleeding, skin lesions or rashes. Physical Exam 2 Physical Exam: GENERAL: 54 yo overweight middle aged WF. Appears ill but nontoxic and no distress. HENT: Dry mucous membranes. No scleral icterus. No cervical lymphadenopathy. LUNGS: Nonlabored. Rhonchi b/l lower lobes. No wheezes or rales. CARDIOVASCULAR: Regular rate and rhythm. No M/G/R. No JVD. ABDOMEN: Soft, non-tender and non-distended. Bowel sounds normoactive x 4 quad. EXTREMITIES: No edema. Non-tender. Peripheral pulses +2/4. NEUROLOGIC: A&O x3. No focal neurological deficits. CN II-XII grossly intact. PSYCHIATRIC: Cooperative. Appropriate mood and affect. SKIN: Warm, dry, intact. No rashes or lesions. Results & Data Results & Data Vital Signs (Past 12 Hours) Vital Signs Temp Pulse Pulse Resp BP BP Pulse Ox 10/07/24 14:51 10/07/24 14:27 90 20 92/58 L 96 10/07/24 12:20 97 10/07/24 12:20 94 H 20 97 10/07/24 12:20 95 10/07/24 12:16 90 10/07/24 11:58 36.4 C L 113 H 22 113/79 95 O2 Del Method 10/07/24 14:51 Room Air 10/07/24 14:27 Room Air 10/07/24 12:20 Room Air 10/07/24 12:20 Room Air 10/07/24 12:20 Room Air 10/07/24 12:16 10/07/24 11:58 Room Air Laboratory Results 10/07/24 12:06 10/07/24 12:06 Diagnostic Findings Chest X-Ray 10/07/24 12:13 XR chest 1V portable CLINICAL HISTORY: Chest pain, nonspecific COMPARISON STUDY: 08/15/2022 FINDINGS: Heart size and pulmonary vasculature are normal. Inspiration is shallow. No effusion, consolidation, or pneumothorax. IMPRESSION: Shallow inspiration. Otherwise no acute findings. ACT 112: Negative or not required by law. Electronically signed by: Quang Fernando M.D. 10/07/2024 12:50 PM Chest CTA 10/07/24 13:21 CT angio chest PE protocol CT DOSE: 748.07 mGy.cm HISTORY: ro PE. TECHNIQUE: Multiple CTA images of the chest were obtained after the intravenous administration of 70 ml Optiray. Coronal and sagittal MIPS were obtained from the axial data set and were submitted for review. All measurements were obtained according to NASCET criteria. A dose lowering technique was utilized adhering to the principles of ALARA. COMPARISON STUDY: None FINDINGS: There is mild patchy opacity in the posterior lower lung lobes consistent with early pneumonia. No pleural effusion or pneumothorax. No enlarged adenopathy. No pericardial effusion. There is fatty liver. No pulmonary embolism. No thoracic aortic aneurysm. No acute osseous findings. IMPRESSION: 1. No pulmonary embolism 2. Early lower lobe pneumonia. ACT 112: Negative or not required by law. The above report was generated using voice recognition software. It may contain grammatical, syntax or spelling errors. Electronically signed by: Quang Fernando M.D. 10/07/2024 1:52 PM Code Status & VTE Plan Code Status Full code - d/w pt at bedside VTE Prophylaxis Plan VTE Prophylaxis will be ordered: Yes Supervising Physician Co-Signing Physician Notes The patient was seen by me. The chart was reviewed. Case discussed with EULOGIO De Souza. The patient tested positive for influenza but she has symptoms consistent with bronchitis. Radiology described bibasilar infiltrates that could be pneumonic in nature. CK is markedly elevated but she has no chest pain and no acute EKG changes. She does have a past history of viral cardiomyopathy that has resolved. She is currently on a heparin drip along with IV antibiotics. She is not producing any sputum for culture. Cardiology consultation has been requested and pending. For the time being, she is on a heparin drip and IV antibiotics. PG Care Time/CCT Total # of Minutes Spent Total Time Spent with Patient: Total time spent is greater than 50% in coordination of care (as documented) at patient's floor/unit and/or counseling patient: 78 minutes Coding Level of Care Code 00943 INT INP/OBS CARE 3/75MIN Diagnoses Community acquired bacterial pneumonia J15.9 Influenza A J10.1 Elevated troponin R79.89 Dehydration E86.0
[2024-10-07] MEDS ORDERED: MAGNESIUM HYDROXIDE SUSP 30 ML UDC PO PRN (17:01)
[2024-10-07] MEDS ORDERED: ACETAMINOPHEN 325 MG TAB PO PRN (17:01)
[2024-10-07] MEDS ORDERED: ALUMINUM/MAGNESIUM SUSP 30 ML UDC PO PRN (17:01)
[2024-10-07] MEDS: SODIUM CHLORIDE 0.9% 500 ML IV ONE (17:24)
--- NOTE | 2024-10-07 17:33 | XCELERA ---
[id number] [id number]
[2024-10-07] MEDS: SODIUM CHLORIDE 0.9% 1,000 ML IV SCH (17:37)
[2024-10-07] MEDS: cefTRIAXone SODIUM 2,000 MG/50 ML BAG IV SCH (18:08)
[2024-10-07] MEDS: AZITHROMYCIN 250 MG TAB PO ONE (18:09)
[2024-10-07] MEDS: carvediloL 3.125 MG TAB PO SCH (18:09)
[2024-10-07] MEDS: guaiFENesin 600 MG TABCR PO SCH (20:11)
[2024-10-07] MEDS: ROSUVASTATIN CALCIUM 5 MG TAB PO SCH (20:11)
[2024-10-07] MEDS: ALBUT/IPRATROP 3MG/0.5MG NEB 3 ML VIAL NEB SCH (20:18)
[2024-10-07 22:45] LABS: ANTI-Xa, UFH(UnfractionatedHep > 1.50 IU/ml (0.3-0.7)
--- NOTE | 2024-10-07 22:54 | Electrocardiogram Report ---
Test Reason : Blood Pressure : */* mmHG Vent. Rate : 95 BPM Atrial Rate : 95 BPM P-R Int : 140 ms QRS Dur : 72 ms QT Int : 336 ms P-R-T Axes : 61 -16 60 degrees QTcB Int : 422 ms Normal sinus rhythm Possible Left atrial enlargement Low voltage QRS Septal infarct , age undetermined Abnormal ECG When compared with ECG of 15-Aug-2022 07:37, Vent. rate has increased by 32 bpm Septal infarct is now Present Confirmed by Benny Orosco ([id number]) on 10/07/2024 10:53:52 PM Referred By: REFERRED SELF Confirmed By: Benny Orosco
[2024-10-08 01:20] LABS: ANTI-Xa, UFH(UnfractionatedHep 0.26 IU/ml (0.3-0.7)
[2024-10-08] MEDS: LEVOTHYROXINE SODIUM 25 MCG TABLET PO SCH (06:04)
--- NOTE | 2024-10-08 06:42 | Hospitalist Progress Note ---
Date of Service October 08, 2024 Assessment & Plan (1) Community acquired bacterial pneumonia: (2) Influenza A: (3) Elevated troponin: (4) Dehydration: Plan 54 year old female presenting with CAP in the setting of influenza and NSTEMI. #CAP - Acute bilateral in setting of acute influenza A infection - no oxygen requirement - Labs revealed, no leukocytosis and pt is afebrile. Defer blood cultures. - Tx for CAP with Rocephin 2g IV daily and Zithromax 500mg x1 and then 250mg x4 doses. 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 Moss. Dr. Orosco is covering this weekend. Appreciate assistance. - Continue rosuvastatin, aspirin, and coreg - Continue Heparin gtt #Dehydration Acute in setting of viral illness, pt endorses poor PO intake over the past week - No fluids given in ER, pt with H/H of 16.2 and 48 respectively. Renal fxn WNL. Na 135. - BP dropped in ED to 92/58-> compelted total 2L IVF - Encourage fluids Chronic medical problems: 1. GERD - continue protonix 2. hypothyroidism - continue levothyroxine 3. Chronic HRT - continue estradiol as there is no evidence of PE on CTA chest DVT ppx covered with heparin gtt. AM labs have been ordered. Above plan of care has been d/w Dr. Jones. Further orders will be implemented as warranted by attending. Admission and Anticipated Discharge Date Admission Date: October 07, 2024 Supervising Physician Co-Signing Physician Notes During face to face encounter, I interviewed the patient and completed a physical examination, discussed hospital stay with patient. I discussed plan of care with Dr. Aguilar PGY3. I reviewed above note and agree with it except for the following: Due to influenza, we ordered tamiflu. Will continue supportive care and rocephin/ azithromycin. WIll continue heparin drip for 48 hours for possible NSTEMI Subjective Pt seen at bedside this morning. No events overnight. Feeling better this morning- denies fever/chills, chest pain, dypsnea. Review of Systems Review of Systems: As per above Physical Exam Physical Exam: Constitutional: well-appearing, no acute distress HEENT: NCAT, no conjunctival injection CV: regular rhythm, no murmur appreciated, extremities well-perfused, no LE edema Resp:rhonchi bases B/L, no increased work of breathing GI: soft, nondistended, nontender MSK: no gross deformities appreciated Skin: warm, dry, no rash appreciated Neuro: alert, oriented, no focal neurologic deficit appreciated Results & Data Results & Data Vital Signs (Past 12 Hours) Vital Signs Temp Pulse Pulse Pulse Resp BP Pulse Ox 10/08/24 03:39 36.6 C 80 20 118/72 94 10/07/24 23:04 36.9 C 83 18 116/78 94 10/07/24 22:10 87 10/07/24 20:19 90 19 95 10/07/24 19:15 10/07/24 19:12 36.7 C 89 20 116/81 95 10/07/24 17:46 91 H 10/07/24 17:46 O2 Del Method 10/08/24 03:39 Room Air 10/07/24 23:04 Room Air 10/07/24 22:10 10/07/24 20:19 Room Air 10/07/24 19:15 Room Air 10/07/24 19:12 Room Air 10/07/24 17:46 10/07/24 17:46 Room Air Resident Activity Tracking Resident Involvement: Resident Care Provided Care Provided: Adult Hospital Medicine
[2024-10-08 08:03] LABS: Hematocrit (blood only) 45.5 % (37.0-47.0); Hemoglobin 15.2 g/dl (12.0-16.0); Mean Corpuscular Hemoglobin 28.4 pg (25.0-34.0); Mean Corpuscular Hgb Conc 33.4 g/dL (32.0-36.0); Mean Platelet Volume 11.5 fL (9.4-12.4); Platelet Count 199 K/uL (130-400); Red Blood Count 5.35 M/uL (4.20-5.40); White Blood Count 7.56 K/ul (4.8-10.8)
[2024-10-08 08:11] LABS: BUN Creatinine Ratio 24.6 (10-20); Calcium 7.8 mg/dl (8.6-10.3); Creatinine Clr Calc Pharmacy 133.3 ml/min; Magnesium 1.8 mg/dl (1.7-2.4); Potassium 3.9 mmol/L (3.5-5.1)
[2024-10-08 08:17] LABS: ANTI-Xa, UFH(UnfractionatedHep 0.42 IU/ml (0.3-0.7)
[2024-10-08] MEDS: ASPIRIN 81 MG ECTAB PO SCH (08:20)
[2024-10-08] MEDS: estradioL 1 MG TAB PO SCH (08:20)
[2024-10-08] MEDS: AZITHROMYCIN 250 MG TAB PO SCH (08:21)
[2024-10-08] MEDS: PANTOprazole 40 MG TAB PO SCH (08:21)
[2024-10-08 08:42] LABS: Basophils # (auto) 0.03 K/uL (0.00-0.20); Basophils % (auto) 0.4 %; Eosinophils # (auto) 0.04 K/uL (0.00-0.50); Eosinophils % (auto) 0.5 %; Immature Granulocytes # (auto) 0.02 K/uL (0.01-0.20); Immature Granulocytes % (auto) 0.3 %; Lymphocytes # (auto) 3.46 K/uL (1.20-3.40); Lymphocytes % (auto) 45.8 %; Monocytes # (auto) 0.44 K/uL (0.11-0.59); Monocytes % (auto) 5.8 %; Neutrophils # (auto) 3.57 K/uL (1.40-6.50); Neutrophils % (auto) 47.2 %
--- NOTE | 2024-10-08 09:19 | Cardiology Consultation ---
Date of Consultation October 08, 2024 Assessment & Plan (1) Non-ST elevation (NSTEMI) myocardial infarction: (2) Elevated troponin: (3) Cardiomyopathy: (4) Viral cardiomyopathy: (5) Pericardial effusion: Plan ASSESSMENT/PLAN: 1. NSTEMI/elevated troponin: She did not present with acute coronary syndrome and elevated troponin may be due to viral myocarditis. Given her degree of troponin elevation, could consider coronary angiography to evaluate for CAD. There is no urgency however as she has no angina and acutely presented with pneumonia/influenza A. Continue beta-shar. Continue aspirin. Can complete 48 hours of heparin as she has been tolerating it. Risk and benefits of coronary angiography were discussed with her. She would like to give it further thought. Could also consider outpatient cardiac MRI to further confirm myocarditis. 2. Cardiomyopathy: History of viral myocarditis and LV systolic function had normalized but is now mildly reduced. Continue carvedilol. Start low-dose Entresto. She appears euvolemic. Possible evaluation as noted above. Considering coronary angiography given risk factors for CAD, including dyslipidemia and family history. She does not require ICD for primary prevention. If she is found to have ischemic heart disease, would recommend high intensity statin therapy. 3. Pericardial effusion: Small and may be related to her viral process as well as she has been diagnosed with influenza A. No evidence for tamponade physiology on echo or clinically. Can repeat limited echo in the near future to evaluate for change. 4. Pneumonia/influenza A: As per primary hospitalist service. 5. Disposition: Cardiology will continue to follow. On discharge, follow-up with Dr. Moss, her primary sql tech. Plan of care communicated with Dr. Antonio of the primary hospitalist service. Thank you for allowing me to participate in the care of your patient. Please call for any other questions or concerns. Sincerely, Yefri Orosco M.D. History of Present Illness Reason for Consultation: "NSTEMI" Requesting Physician: Carly Carreon PA-C Attending Physician: Gera Antonio History of Present Illness Ms. Olivas ('axel berrios') is a very pleasant 54-year-old female with a history signi ficant for viral cardiomyopathy, dyslipidemia, Schatzki's ring of distal esophagus, pancreatitis, and hypothyroidism. Her primary sql tech is Dr. Moss. She reports having a viral myocarditis in 2015 before living in this area. She believes that she underwent a cardiac MRI. She had full recovery of her LV systolic function over time. She was hospitalized on 10/07/2024 given progressively worsening dyspnea. She had dyspnea walking in her home even from room to room and also orthopnea. She had not noted any edema. She denied syncope, near syncope, palpitations, melena, hematochezia, or hematuria. Her upper extremities, lower extremities, and chest felt heavy for approximately 2 days however this has improved. She was diagnosed with community-acquired pneumonia and also influenza A. She was also was felt to be dehydrated on presentation given poor oral intake over the past week. She then received 2 L of IV fluid by the hospitalist service. Review of systems: As above. Family history: Father at 42 with heart failure. Sister at 44 with CO but also had diabetes. Social history: She denies tobacco or drug abuse. Rare alcohol. She lives at home with her dog. Has 3 children who live locally. She works as a corporate travel agent. She was unaccompanied. Allergies Allergy/AdvReac Type Severity Reaction Status Date / Time No Known Allergies Allergy Verified 10/07/24 13:58 Home Medications Medication Instructions Recorded Confirmed Type aspirin 81 mg chewable tablet 81 mg PO QAM 04/24/21 10/07/24 History pantoprazole 40 mg tablet,delayed 40 mg PO QAM #90 tabs 05/09/24 10/07/24 Rx release carvedilol 3.125 mg tablet (Coreg) 3.125 mg PO BIDWMEAL 10/07/24 10/07/24 History estradiol 2 mg tablet 2 mg PO QAM 10/07/24 10/07/24 History levothyroxine 25 mcg tablet 37.5 mcg PO DAILYBB 10/07/24 10/07/24 History (Synthroid) rosuvastatin 5 mg tablet 5 mg PO HS 10/07/24 10/07/24 History Problem List (Updated 10/08/24 @ 21:34 by Benny Orosco MD) Pericardial effusion Cardiomyopathy Non-ST elevation (NSTEMI) myocardial infarction Pneumonia (Acute) Dehydration Influenza A (Acute) Community acquired bacterial pneumonia Elevated troponin Schatzki's ring of distal esophagus Esophageal dysphagia Encounter for pre-operative examination Family history of heart disease Acute pancreatitis (Acute) Transaminitis (Acute) Epigastric abdominal pain (Acute) Cholelithiasis Esophageal dysphagia Pancreatitis GERD (gastroesophageal reflux disease) Hypothyroidism (Chronic) Hyperlipidemia (Chronic) Patient History Medical History Viral cardiomyopathy hx History of CHF (congestive heart failure) follows with Dr. Moss. History of esophageal dilatation GERD (gastroesophageal reflux disease) Dysphagia Surgical History History of colonoscopy History of esophagogastroduodenoscopy (EGD) History of hysterectomy History of cholecystectomy Social History Smoking Status: Never smoker Second Hand Exposure: No; Do You Dip or Chew Tobacco: No; Hx Alcohol Use: No Hx Substance Use: No Preferred Language: Uzbek Communication Ability: Effective Logistics Team Lead Required: No Beliefs That Will Affect Care: None Current Living Situation: Alone Feels Safe at Home: Yes Assistive Devices: None Physical Exam Physical Exam: Gen.: No acute distress. Alert and oriented. HEENT: Anicteric sclera. Neck: No JVD. No bruits. Normal carotid upstrokes bilaterally. Cardiac: Regular. Normal S1-S2. No murmurs, rubs, or gallops. Pulmonary: Coarse breath sounds/crackles at the bases, right > left. Abdomen: Soft, nontender, nondistended, with normoactive bowel sounds. No bruits noted. Extremities: 2+ radial pulses bilaterally. 2+ posterior tibialis pulses bilaterally. No edema or cyanosis. Psychiatric: Affect appears appropriate. Results & Data Vital Signs (Past 12 Hours) Vital Signs Temp Pulse Pulse Resp BP Pulse Ox O2 Del Method 10/08/24 07:47 36.8 C 90 18 109/75 92 Nebulizer 10/08/24 07:08 82 16 95 Room Air 10/08/24 03:39 36.6 C 80 20 118/72 94 Room Air 10/07/24 23:04 36.9 C 83 18 116/78 94 Room Air 10/07/24 22:10 87 10/07/24 20:19 90 19 95 Room Air Intake & Output 10/06/24 10/07/24 10/08/24 10/09/24 05:59 05:59 06:59 06:59 Intake Total Balance Weight Laboratory Results Laboratory Results - last 24 hr 10/07/24 10/07/24 10/07/24 12:06 12:19 14:33 WBC 6.23 RBC 5.61 H Hgb 16.2 H Hct 48.0 H MCV 85.6 MCH 28.9 MCHC 33.8 RDW Std Deviation 39.9 RDW Coeff of Serina 12.8 Plt Count 220 MPV 10.9 Immature Gran % (Auto) 0.3 Neut % (Auto) 58.8 Lymph % (Auto) 33.9 Sawyer % (Auto) 5.9 Eos % (Auto) 0.6 Baso % (Auto) 0.5 Neut # (Auto) 3.66 Lymph # (Auto) 2.11 Sawyer # (Auto) 0.37 Eos # (Auto) 0.04 Baso # (Auto) 0.03 Immature Gran # (Auto) 0.02 Toxic Vacuolation 2+ Polychromasia 1+ PT 10.8 INR 1.0 APTT 28 PTT Ratio 1.0 D-Dimer 850 H* Heparin Anti-Xa, Unfract Sodium 135 L Potassium 3.7 Chloride 103 Carbon Dioxide 24 Anion Gap 8 BUN 13 Creatinine 0.75 Est Cr Clr Drug Dosing 99.0 eGFR 93.38 BUN/Creatinine Ratio 17.3 Glucose 132 H Calcium 8.5 L Magnesium Troponin I High Sens 3411.4 H* 3492.7 H* B-Natriuretic Peptide 304 H Lipase 14 SARS-CoV-2 (PCR) NEGATIVE Influenza Type A (PCR) Positive A Influenza Type B (PCR) Negative RSV (RT-PCR) Negative 10/07/24 10/08/24 10/08/24 20:46 00:38 07:40 WBC 7.56 RBC 5.35 Hgb 15.2 Hct 45.5 MCV 85.0 MCH 28.4 MCHC 33.4 RDW Std Deviation 40.0 RDW Coeff of Serina 13.0 Plt Count 199 MPV 11.5 Immature Gran % (Auto) 0.3 Neut % (Auto) 47.2 Lymph % (Auto) 45.8 Sawyer % (Auto) 5.8 Eos % (Auto) 0.5 Baso % (Auto) 0.4 Neut # (Auto) 3.57 Lymph # (Auto) 3.46 H Sawyer # (Auto) 0.44 Eos # (Auto) 0.04 Baso # (Auto) 0.03 Immature Gran # (Auto) 0.02 Toxic Vacuolation Polychromasia PT INR APTT PTT Ratio D-Dimer Heparin Anti-Xa, Unfract > 1.50 H* 0.26 L 0.42 Sodium 133 L Potassium 3.9 Chloride 103 Carbon Dioxide 22 Anion Gap 8 BUN 14 Creatinine 0.57 L Est Cr Clr Drug Dosing 133.3 eGFR 106.59 BUN/Creatinine Ratio 24.6 H Glucose 148 H Calcium 7.8 L Magnesium 1.8 Troponin I High Sens 3233.8 H* B-Natriuretic Peptide Lipase SARS-CoV-2 (PCR) Influenza Type A (PCR) Influenza Type B (PCR) RSV (RT-PCR) Diagnostic Findings Echo 10/08/2024: Normal LV size. EF 40-45%. Global hypokinesis. Mild LVH. No significant valvular abnormalities. Small pericardial effusion without echocardiographic evidence of tamponade physiology. Compared to 02/12/2022 study, LV systolic function has declined and pericardial effusion is now present. Outpatient cardiology note reviewed from 12/30/2023. ECG personally reviewed: ECG 10/07/2024 12:08 PM: Sinus 95 bpm. Septal infarct. History and physical report reviewed. Labs reviewed and notable for elevated high-sensitivity troponin peaking at 3492, mildly elevated BNP, mild hyponatremia, normal potassium, normal renal function, normal magnesium, normal blood counts. Normal lipase. Positive influenza A. CTA chest 10/07/2024: No pulmonary embolism. Early lower lobe pneumonia per radiology. No thoracic aortic aneurysm. Medications Administered Current Inpatient Medications Acetaminophen (Acetaminophen 325 Mg Tab) 650 mg PO Q4H PRN PRN Reason: Pain or Fever Stop: 11/06/24 17:00 Al Hydrox/Mg Hydrox/Simethicone (Aluminum/Magnesium Susp 30 Ml Udc) 15 ml PO Q4H PRN PRN Reason: Dyspepsia Stop: 11/06/24 17:00 Albuterol (Albut/Ipratrop 3mg/0.5mg Neb 3 Ml Vial) 3 ml NEB QIDR [facility]; Protocol Stop: 11/06/24 17:00 Last Admin: 10/08/24 07:07 Dose: 3 ml Aspirin (Aspirin 81 Mg Ectab) 81 mg PO [facility] Stop: 11/07/24 08:59 Last Admin: 10/08/24 08:20 Dose: 81 mg Azithromycin ([facility]romycin 250 Mg Tab) [facility] Stop: 10/13/24 08:59 Last Admin: 10/08/24 08:21 Dose: 250 mg Carvedilol (Carvedilol 3.125 Mg Tab) 3.125 mg PO BIDM [facility] Stop: 11/06/24 17:00 Last Admin: 10/08/24 08:20 Dose: 3.125 mg Estradiol (Estradiol 1 Mg Tab) [facility] [place] Stop: 11/07/24 08:59 Last Admin: 10/08/24 08:20 Dose: 2 mg Guaifenesin (Guaifenesin 600 Mg Tabcr) 600 mg PO Q12 [facility] Stop: 11/06/24 20:59 Last Admin: 10/08/24 08:20 Dose: 600 mg Heparin Sodium/Dextrose (Heparin 03162 Unit/500 Ml D5w) 25,000 units in 500 mls @ 27 mls/hr IV .[id number] [facility]; Protocol Stop: 11/06/24 14:14 Last Admin: 10/08/24 08:49 Dose: 1,000 units/hr, 20 mls/hr Ceftriaxone Sodium (Rocephin) 2,000 mg in 50 mls @ 100 mls/hr IV Q24H [facility] Stop: 10/12/24 17:59 Last Infusion: 10/07/24 18:38 Dose: Infused Sodium Chloride (Nss) 1,000 mls @ 100 mls/hr IV .Q10H [facility] Stop: 10/08/24 17:00 Last Admin: 10/08/24 04:12 Dose: 100 mls/hr Levothyroxine Sodium (Levothyroxine Sodium 25 Mcg Tablet) 37.5 mcg PO DAILYBB [facility] Stop: 11/07/24 06:29 Last Admin: 10/08/24 06:04 Dose: 37.5 mcg Magnesium Hydroxide (Magnesium Hydroxide Susp 30 Ml Udc) 30 ml PO Q12H PRN PRN Reason: Constipation Stop: 11/06/24 17:00 Ondansetron HCl (Ondansetron Inj 2 Mg/Ml 2 Ml Vial) 4 mg IV Q6H PRN PRN Reason: Nausea Stop: 11/06/24 17:00 Pantoprazole Sodium (Pantoprazole 40 Mg Tab) 40 mg PO QAM [facility] Stop: 11/07/24 08:59 Last Admin: 10/08/24 08:21 Dose: 40 mg Rosuvastatin Calcium (Rosuvastatin Calcium 5 Mg Tab) 5 mg PO HS [facility] Stop: 11/06/24 20:59 Last Admin: 10/07/24 20:11 Dose: 5 mg PG Care Time/CCT Total # of Minutes Spent Total Time Spent with Patient: Total time spent is greater than 50% in coordination of care (as documented) at patient's floor/unit and/or counseling patient: Coding Level of Care Code 51226 INT INP/OBS CARE 3/75MIN Diagnoses Non-ST elevation (NSTEMI) myocardial infarction I21.4 Elevated troponin R79.89 Cardiomyopathy I42.9 Viral cardiomyopathy B33.24 Pericardial effusion I31.39
[2024-10-08] MEDS ORDERED: ALBUT/IPRATROP 3MG/0.5MG NEB 3 ML VIAL NEB PRN (11:25)
[2024-10-08] MEDS: OSELTAMIVIR PHOSPHATE 75 MG CAP PO SCH (11:28)
[2024-10-09 07:43] LABS: ANTI-Xa, UFH(UnfractionatedHep 0.28 IU/ml (0.3-0.7)
[2024-10-09] MEDS: VALSARTAN/SACUBITRIL 26/24MG TAB PO SCH (08:07)
--- NOTE | 2024-10-09 11:24 | Billing Data ---
Date of Service October 08, 2024 Coding Level of Care Code 66980 SUB INP/OBS CARE MIN
--- NOTE | 2024-10-09 14:39 | Cardiology Progress Note ---
Date of Service October 09, 2024 Assessment & Plan (1) Non-ST elevation (NSTEMI) myocardial infarction: (2) Elevated troponin: (3) Cardiomyopathy: (4) Viral cardiomyopathy: (5) Pericardial effusion: Plan ASSESSMENT/PLAN: 1. NSTEMI/elevated troponin: She did not present with acute coronary syndrome and elevated troponin may be due to viral myocarditis. Given her degree of troponin elevation, we discussed pursuing coronary angiography to evaluate for CAD. Risk and benefits were discussed with her in detail. She was made aware that CT surgery is not available at this facility. She would like to proceed. She had lunch today. Will likely proceed tomorrow. There is no urgency however as she has no angina and acutely presented with pneumonia/influenza A. Continue beta-shar. Continue aspirin. 2. Cardiomyopathy: History of viral myocarditis and LV systolic function had normalized but is now mildly reduced. Continue carvedilol. Started low-dose Entresto while here. She appears euvolemic. Ischemic evaluation tomorrow given risk factors for CAD, including dyslipidemia and family history. She does not require ICD for primary prevention. If she is found to have ischemic heart disease, would recommend high intensity statin therapy. 3. Pericardial effusion: Small and may be related to her viral process as well as she has been diagnosed with influenza A. No evidence for tamponade physiology on echo or clinically. Repeat limited echo. 4. Pneumonia/influenza A: As per primary hospitalist service. 5. Disposition: Cardiology will continue to follow. 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 Plan of care communicated with Dr. Antonio of the primary hospitalist service. Admission and Anticipated Discharge Date Admission Date: October 07, 2024 Subjective She denies chest pain. Her breathing has improved but she still has dyspnea. She denies palpitations, syncope, near syncope, edema, or bleeding. She would like to pursue coronary angiography. Her daughter was present at the bedside. Physical Exam Physical Exam: Gen.: No acute distress. Alert and oriented. HEENT: Anicteric sclera. Neck: No JVD. Cardiac: Regular. Normal S1-S2. No murmurs, rubs, or gallops. Pulmonary: Clear to auscultation bilaterally. Abdomen: Soft, nontender, nondistended, with normoactive bowel sounds. No bruits noted. Extremities: 2+ radial pulses bilaterally. 2+ posterior tibialis pulses bilaterally. No edema or cyanosis. Psychiatric: Affect appears appropriate. Results & Data Vital Signs (Past 12 Hours) Vital Signs Temp Pulse Pulse Resp BP Pulse Ox O2 Del Method 10/09/24 10:49 36.6 C 90 16 110/68 95 Room Air 10/09/24 10:03 85 10/09/24 10:03 Room Air 10/09/24 07:00 36.7 C 91 H 16 103/72 94 Room Air Intake & Output 10/07/24 10/08/24 10/09/24 10/10/24 05:59 06:59 06:59 06:59 Intake Total 2598.667 / 2598.667 461.333 / 461.333 Balance 2598.667 / 2598.667 461.333 / 461.333 Weight 234 lb 9.149 oz Laboratory Results Laboratory Results - last 24 hr 10/09/24 10/09/24 06:20 14:12 Heparin Anti-Xa, Unfract 0.28 L Pending Diagnostic Findings Telemetry personally reviewed: Sinus rhythm. No arrhythmia. ECG ordered and reviewed: ECG 10/09/2024 at 1328: Sinus rhythm 87 bpm. Possible anterior infarct. Medications Administered Current Inpatient Medications Acetaminophen (Acetaminophen 325 Mg Tab) 650 mg PO Q4H PRN PRN Reason: Pain or Fever Stop: 11/06/24 17:00 Al Hydrox/Mg Hydrox/Simethicone (Aluminum/Magnesium Susp 30 Ml Udc) 15 ml PO Q4H PRN PRN Reason: Dyspepsia Stop: 11/06/24 17:00 Albuterol (Albut/Ipratrop 3mg/0.5mg Neb 3 Ml Vial) 3 ml NEB Q4R PRN; Protocol PRN Reason: Shortness Of Breath Or Wheezing Stop: 11/07/24 14:59 Aspirin (Aspirin 81 Mg Ectab) 81 mg PO [facility] Stop: 11/07/24 08:59 Last Admin: 10/09/24 08:07 Dose: 81 mg Azithromycin ([facility] 250 Mg Tab) [facility] Stop: 10/13/24 08:59 Last Admin: 10/09/24 08:07 Dose: 250 mg Carvedilol (Carvedilol 3.125 Mg Tab) [facility] Stop: 11/06/24 17:00 Last Admin: 10/09/24 08:07 Dose: 3.125 mg Estradiol (Estradiol 1 Mg Tab) 2 mg PO QAM [facility] Stop: 11/07/24 08:59 Last Admin: 10/09/24 08:07 Dose: 2 mg Guaifenesin (Guaifenesin 600 Mg Tabcr) 600 mg PO Q12 [facility] Stop: 11/06/24 20:59 Last Admin: 10/09/24 08:07 Dose: 600 mg Heparin Sodium/Dextrose (Heparin 70632 Unit/500 Ml D5w) 25,000 units in 500 mls @ 20 mls/hr IV .Q24H [facility]; Protocol Stop: 11/06/24 14:14 Last Admin: 10/09/24 08:06 Dose: 1,050 units/hr, 21 mls/hr Ceftriaxone Sodium (Rocephin) 2,000 mg in 50 mls @ 100 mls/hr IV Q24H [facility] Stop: 10/12/24 17:59 Last Infusion: 10/08/24 19:05 Dose: Infused Levothyroxine Sodium (Levothyroxine Sodium 25 Mcg Tablet) 37.5 mcg PO DAILYBB [facility] Stop: 11/07/24 06:29 Last Admin: 10/09/24 06:10 Dose: 37.5 mcg Magnesium Hydroxide (Magnesium Hydroxide Susp 30 Ml Udc) 30 ml PO Q12H PRN PRN Reason: Constipation Stop: 11/06/24 17:00 Ondansetron HCl (Ondansetron Inj 2 Mg/Ml 2 Ml Vial) 4 mg IV Q6H PRN PRN Reason: Nausea Stop: 11/06/24 17:00 Oseltamivir Phosphate (Oseltamivir Phosphate 75 Mg Cap) 75 mg PO BID [facility] Stop: 10/13/24 10:59 Last Admin: 10/09/24 08:06 Dose: 75 mg Pantoprazole Sodium (Pantoprazole 40 Mg Tab) 40 mg PO QAM [facility] Stop: 11/07/24 08:59 Last Admin: 10/09/24 08:07 Dose: 40 mg Rosuvastatin Calcium (Rosuvastatin Calcium 5 Mg Tab) 5 mg PO HS [facility] Stop: 11/06/24 20:59 Last Admin: 10/08/24 20:36 Dose: 5 mg Sacubitril/Valsartan (Valsartan/Sacubitril 26/24mg Tab) 1 tab PO BID [facility] Stop: 11/08/24 08:59 Last Admin: 10/09/24 08:07 Dose: 1 tab PG Care Time/CCT Total # of Minutes Spent Total Time Spent with Patient: Total time spent is greater than 50% in coordination of care (as documented) at patient's floor/unit and/or counseling patient: Coding Level of Care Code 77860 SUB INP/OBS CARE 3/50MIN Diagnoses Non-ST elevation (NSTEMI) myocardial infarction I21.4 Elevated troponin R79.89 Cardiomyopathy I42.9 Viral cardiomyopathy B33.24 Pericardial effusion I31.39
[2024-10-09 14:56] LABS: ANTI-Xa, UFH(UnfractionatedHep 0.26 IU/ml (0.3-0.7)
[2024-10-09] MEDS: PERFLUTREN LIPID MICROSPHERE (DEFINITY) IV ONE (15:10)
--- NOTE | 2024-10-09 18:34 | XCELERA ---
[id number]
[2024-10-09 20:58] LABS: ANTI-Xa, UFH(UnfractionatedHep 0.27 IU/ml (0.3-0.7)
--- NOTE | 2024-10-09 23:07 | Hospitalist Progress Note ---
Date of Service October 09, 2024 Assessment & Plan (1) Community acquired bacterial pneumonia: (2) Influenza A: (3) Elevated troponin: (4) Dehydration: Plan 54 year old female presenting with CAP in the setting of influenza and NSTEMI. #CAP - Acute bilateral in setting of acute influenza A infection - no oxygen requirement - Labs revealed, no leukocytosis and pt is afebrile. Defer blood cultures. - Tx for CAP with Rocephin 2g IV daily and Zithromax 500mg x1 and then 250mg x4 doses. 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 Moss. Dr. Orosco is covering. Appreciate assistance. - Continue rosuvastatin, aspirin, and coreg - Completed 48 hours of heprain. -will have cardiac cath in AM. repeat echo showed small to moderate pericardial effusion without echo. #Dehydration Acute in setting of viral illness, pt endorses poor PO intake over the past week - No fluids given in ER, pt with H/H of 16.2 and 48 respectively. Renal fxn WNL. Na 135. - BP dropped in ED to 92/58-> compelted total 2L IVF - Encourage fluids Chronic medical problems: 1. GERD - continue protonix 2. hypothyroidism - continue levothyroxine 3. Chronic HRT - continue estradiol as there is no evidence of PE on CTA chest DVT ppx covered with heparin gtt. Admission and Anticipated Discharge Date Admission Date: October 07, 2024 Subjective 54 yo female reports no new symptoms. Review of Systems Review of Systems: All systems reviewed & are unremarkable except as noted in HPI & below Physical Exam Physical Exam: Constitutional: well-appearing, no acute distress HEENT: NCAT, no conjunctival injection CV: regular rhythm, no murmur appreciated, extremities well-perfused, no LE edema Resp:rhonchi bases B/L, no increased work of breathing GI: soft, nondistended, nontender MSK: no gross deformities appreciated Skin: warm, dry, no rash appreciated Neuro: alert, oriented, no focal neurologic deficit appreciated Results & Data Results & Data Vital Signs (Past 12 Hours) Vital Signs Temp Pulse Resp BP Pulse Ox O2 Del Method 10/09/24 22:59 36.6 C 79 18 92/58 L 95 Room Air 10/09/24 19:25 36.5 C 97 H 18 109/75 98 Room Air 10/09/24 17:13 93 H 111/75 95 Room Air 10/09/24 15:47 36.7 C 78 20 104/73 95 Room Air PG Care Time/CCT Total # of Minutes Spent Total Time Spent with Patient: Total time spent is greater than 50% in coordination of care (as documented) at patient's floor/unit and/or counseling patient: Coding Level of Care Code 67359 SUB INP/OBS CARE 3/50MIN Diagnoses Community acquired bacterial pneumonia J15.9 Influenza A J10.1 Elevated troponin R79.89 Dehydration E86.0
[2024-10-10 03:02] LABS: Hemoglobin 13.6 g/dl (12.0-16.0); Mean Corpuscular Hemoglobin 28.8 pg (25.0-34.0); Mean Corpuscular Volume 84.7 fL (80.0-100.0); Platelet Count 249 K/uL (130-400); RDW Coefficient of Variation 13.2 % (11.5-14.5); RDW Standard Deviation 40.7 fL (36.4-46.3); Red Blood Count 4.72 M/uL (4.20-5.40); White Blood Count 12.77 K/ul (4.8-10.8)
[2024-10-10 03:15] LABS: BUN Creatinine Ratio 34.6 (10-20); Calcium 7.9 mg/dl (8.6-10.3); Creatinine Clr Calc Pharmacy 146.4 ml/min; Potassium 3.6 mmol/L (3.5-5.1)
[2024-10-10 03:31] LABS: ANTI-Xa, UFH(UnfractionatedHep 0.24 IU/ml (0.3-0.7)
--- NOTE | 2024-10-10 06:13 | Electrocardiogram Report ---
Test Reason : Blood Pressure : */* mmHG Vent. Rate : 87 BPM Atrial Rate : 87 BPM P-R Int : 142 ms QRS Dur : 80 ms QT Int : 370 ms P-R-T Axes : 41 33 37 degrees QTcB Int : 445 ms Normal sinus rhythm Low voltage QRS Anterior infarct Abnormal ECG When compared with ECG of 07-Oct-2024 12:08, Questionable change in initial forces of Anterolateral leads Confirmed by Benny Orosco ([id number]) on 10/10/2024 6:13:43 AM Referred By: REFERRED SELF Confirmed By: Benny Orosco
--- NOTE | 2024-10-10 11:35 | Pre Anesthesia Assessment ---
Date of Service October 10, 2024 Pre Sedation Assessment Vital Signs Temp Pulse Pulse Resp BP Pulse Ox O2 Del Method 10/10/24 11:10 36.5 C 87 18 93/54 L 96 Room Air 10/10/24 09:00 73 10/10/24 08:33 103/68 10/10/24 08:00 Room Air 10/10/24 08:00 36.7 C 87 18 89/50 L 98 Room Air 10/10/24 02:40 36.7 C 80 18 91/61 L 97 Room Air 10/10/24 01:55 78 10/10/24 01:24 Room Air 10/09/24 22:59 36.6 C 79 18 92/58 L 95 Room Air 10/09/24 19:25 36.5 C 97 H 18 109/75 98 Room Air 10/09/24 17:13 93 H 111/75 95 Room Air 10/09/24 15:47 36.7 C 78 20 104/73 95 Room Air Cardiovascular RRR, no murmur, no edema Respiratory normal respiratory effort, lungs clear to auscultation Pre-Sedation Airway Assessment Smoking Status: Never smoker Hx Sleep Apnea: No Short, Thick Neck: No Thyromental Distance: > or= 3.5 Finger Breadths Oral Cavity: + WNL Mallampati Class: III ASA: ASA3 NPO Status Date of Last Intake of Fluids: 10/10/24 Time of Last Intake of Fluids: 09:00 Last Oral Intake of Fluids Comment: sips with meds Date of Last Intake of Solid Food: 10/09/24 Time of Last Intake of Solid Foods: 20:00 Procedure Planning Contraindications for Sedation: none Current Medications Reviewed: Yes Notes The planned sedation has been discussed with the patient. Informed Consent was obtained. I have identified the patient, determined the appropriateness of sedation and have assessed the patient immediately prior to the procedure. All medicine(s) and interventions are by my order.
[2024-10-10] MEDS: fentaNYL citrate PF 100 MCG/2 ML VIAL ONE (12:29)
[2024-10-10] MEDS: MIDAZOLAM HCL 1 MG/ML 2ML VIAL ONE (12:30)
[2024-10-10] MEDS: HEPARIN (PORCINE) 1000 UNIT/ML 10 ML (CATH LAB USE ONLY) ONE (12:30)
[2024-10-10] MEDS: niCARdipine 2,000 MCG/20 ML SYR ONE (12:31)
[2024-10-10] MEDS: PHENYLEPHRINE 100MCG/ML 5ML SYR ONE (12:31)
[2024-10-10] MEDS: OPTIRAY 350 ONE (12:39)
--- NOTE | 2024-10-10 12:42 | Post Anesthesia Assessment ---
Date of Service October 10, 2024 Post Sedation Assessment Vital Signs Temp Pulse Pulse Resp BP Pulse Ox O2 Del Method 10/10/24 11:10 36.5 C 87 18 93/54 L 96 Room Air 10/10/24 09:00 73 10/10/24 08:33 103/68 10/10/24 08:00 Room Air 10/10/24 08:00 36.7 C 87 18 89/50 L 98 Room Air 10/10/24 02:40 36.7 C 80 18 91/61 L 97 Room Air 10/10/24 01:55 78 10/10/24 01:24 Room Air 10/09/24 22:59 36.6 C 79 18 92/58 L 95 Room Air 10/09/24 19:25 36.5 C 97 H 18 109/75 98 Room Air 10/09/24 17:13 93 H 111/75 95 Room Air 10/09/24 15:47 36.7 C 78 20 104/73 95 Room Air Recovery Score Activity: Moves 4 extremities Respiration: Deep Breath/Cough Circulation: +/-20% PreAnes Value Consciousness: Fully Awake Oxygen Saturation: > 92% On Room Air Discharge Sedation Level of Care: Fast Track Phase II Post Sedation Plan On clinical assessment, the patient appears to have tolerated the sedation without complications. Patient is recovering as anticipated. Patient will continue to be monitored by nursing and may be discharged when sedation discharge criteria are met per below protocol. Upon Completions of procedure up to 15 minutes continue every 5 minute vital signs and the P.A.R. score; then discharge to a Phase I or Fast Track to Phase II per the following guidelines: * Discharge Patient to appropriate Phase II area if PAR is 8 or greater or return to pre- procedure baseline. The post - procedure orders will be as directed. * If PAR score is less than 8 or not return to pre-procedure baseline then patient will follow Phase I monitoring till PAR is reached for Phase II. The Phase I may be done in procedure room or may call to secure a Phase I area. * If naloxone or flumazenil are used for reversal, hold in Phase I for continued monitoring from when last reversal dose was given for a minimum of 60 minutes or longer pending the nurse and/or physician discretion of patient condition before discharge to Phase II. Please call the Sedation Physician to re-evaluate and complete post-note for discharge to Phase II area. Do NOT discharge from procedure sedation or Phase 1 until post- sedation evaluation note is complete by procedure /sedation MD Sedation Discharge Instructions to be given to the patient at discharge to home.
--- NOTE | 2024-10-10 12:44 | Cardiac Catheterization ---
[facility] Data: Template Clerk Cardiac Status Clinical evaluation leading to the procedure CAD Presenation: No Sxs, No angina Anginal Classification: No Symptoms Heart Failure: No Cardiogenic Shock within 24 Hours: No Cardiac Arrest within 24 Hours: No Imaging Studies Past 6 Months: Yes Stress Studies Past 6 Months: No Coronary Anatomy Dominant: Right Diagnostic Physicians Name: Benny Orosco MD Status: Elective Closure Device Percutaneous Entry Location: Radial Closure Device: Radial Band Recommendations: Management Recommendatons Cardiac Cath Procedure Full Procedure Date October 10, 2024 Pre-Procedure Diagnosis Pre-Procedure Diagnosis: Non STEMI and Cardiomyopathy AUC Score AUC Score: 7 Post-Procedure Diagnosis Post-Procedure Diagnosis: Normal Coronary Arteries Procedure(s) Performed Procedure(s) Performed: Coronary Angiography and Left Heart Cath Stereo Compiler Benny Orosco MD Shorer(s) Ash Estimated Blood Loss Estimated Blood Loss: < 20 ml Medication(s) Medication(s): Fentanyl, Heparin, Lidocaine 1%, Demario-Synephrine, Nicardipine and Versed Summary of Findings Procedures: 1. Coronary angiography 2. Left heart catheterization 3. Moderate sedation Indication: Ms. Olivas is a very pleasant 54-year-old female who presented with influenza A and pneumonia and was found to have elevated high-sensitivity troponin over 3000 with reduced LV systolic function. Coronary angiography: 1. Left main: No significant CAD. 2. Left anterior descending: No significant CAD. Large D1 and small D2 without significant CAD. 3. Circumflex: No significant CAD within the circumflex, large OM1, medium OM 2, small OM 3. 4. Right coronary artery: RCA is large and dominant. Luminal irregularities in the mid RCA. PDA and PL without significant CAD. Left heart catheterization: 1. Left ventriculography was not performed. 2. No significant aortic stenosis. 3. LVEDP 13. Moderate sedation: 1. Sedation start time: 12:02 PM 2. Sedation end time: 12:42 PM Procedural notes: 1. Procedure performed via the right radial artery without known complication. 2. Following nicardipine and sedation, systolic blood pressure was in the 70s via intra-aortic pressure. This correlated well with the left upper extremity blood pressure cuff. 3. Normal saline 500 mL bolus was administered. 4. Demario-Synephrine 150 mcg IV was given and boluses of 50 mcg each. 5. Systolic blood pressure was 112 mmHg before leaving the Template Clerk procedure room. 6. She remained awake and without symptoms with hypotension. Impression: 1. No significant CAD. 2. Borderline elevated left-sided filling pressure. 3. No aortic stenosis. 4. Hypotension. 5. Nonischemic cardiomyopathy, likely due to myocarditis. Plan: 1. Monitor blood pressures closely. 2. Optimize GDMT as able. Hemodynamics Rest Ao:: 70/42 Final Ao: 75/50 LV: 72//13 Recommendations Recommendations: Management Recommendatons Specimens Specimens: None Radiation Exposure (mGy) 879 mGy. Fluoro time 6.8 min. Contrast (mls) 75 ml Procedural Complication(s) None Disposition PCU I attest to the content of the Intraoperative Record and any orders documented therein. Any exceptions are noted below. [facility] Card Cath Procedure Codes Cardiac Catheterization Procedure 1: Cardiovascular Cath Procedures: 69870 Coronaries and LHC (+/-LV) Moderate Sedation Procedure 1: Sedation/Anesthesia: 18722 Mod Sedation by the same physician;Init15 Min Child Age 5 & Up Procedure 2: Sedation/Anesthesia: 72459 Mod Sedation by the same physician; Ea [id number] Minutes Procedure 3: Sedation/Anesthesia: 35965 Mod Sedation by the same physician; Ea [id number] Minutes PG Care Time/CCT Total # of Minutes Spent Total Time Spent with Patient: Total time spent is greater than 50% in coordination of care (as documented) at patient's floor/unit and/or counseling patient:
--- NOTE | 2024-10-10 15:29 | Cardiology Progress Note ---
Date of Service October 10, 2024 Assessment & Plan (1) Non-ST elevation (NSTEMI) myocardial infarction: (2) Elevated troponin: (3) Cardiomyopathy: (4) Viral cardiomyopathy: (5) Pericardial effusion: Plan ASSESSMENT/PLAN: 1. NSTEMI/elevated troponin: She did not present with acute coronary syndrome. No significant CAD on cardiac catheterization. Presentation likely due to myocarditis. Could consider outpatient cardiac MRI if ongoing issues to confirm myocarditis. 2. Cardiomyopathy: History of viral myocarditis and LV systolic function had normalized but is now mildly reduced. Continue carvedilol. Started low-dose Entresto on 10/09/2024 but hypotensive today. Hold Entresto. She appears euvolemic and LVEDP not significantly elevated. She does not require ICD for primary prevention. Discussed diagnosis again with patient and her family. Could consider outpatient cardiac MRI if necessary to help confirm diagnosis. 3. Pericardial effusion: Small moderate and may be related to her viral process as well as she has been diagnosed with influenza A. No evidence for tamponade physiology on echo. Her periodically. Consider colchicine as there may be slight enlargement today compared to yesterday. 4. Pneumonia/influenza A: As per primary hospitalist service. Communicated today's hypotension, hyponatremia and leukocytosis with primary hospitalist service, Dr. Antonio. 5. Disposition: Cardiology will continue to follow. On discharge, follow-up w ith Dr. Moss, her primary histology tech. Plan of care communicated with Dr. Antonio of the primary hospitalist service. Admission and Anticipated Discharge Date Admission Date: October 07, 2024 Subjective She underwent cardiac catheterization today. She stated that she is slowly getting better daily, although family stated that she still does not seem herself and is very weak to ambulate even minimal distances within her room. She is still short of breath but improved. She denies chest pain, syncope, near syncope, lightheadedness. She has been intermittently hypotensive overnight and after sedation in the [facility] and intra-arterial nicardipine, systolic blood pr essure was in the 70s. She responded to phenylephrine and 500 mL normal saline bolus. Physical Exam Physical Exam: Gen.: No acute distress. Alert and oriented. HEENT: Anicteric sclera. Neck: No JVD. Cardiac: Regular. Normal S1-S2. No murmurs, rubs, or gallops. Pulmonary: Clear to auscultation bilaterally. Abdomen: Soft, nontender, nondistended, with normoactive bowel sounds. No bruits noted. Extremities: 2+ radial pulses bilaterally. 2+ posterior tibialis pulses bilaterally. No significant pitting edema or cyanosis. Results & Data Vital Signs (Past 12 Hours) Vital Signs Temp Pulse Pulse Pulse Resp BP BP 10/10/24 15:00 36.4 C L 79 18 98/64 L 10/10/24 14:34 36.4 C L 81 18 111/73 10/10/24 14:14 82 17 99/69 L 10/10/24 14:04 36.6 C 79 18 97/61 L 10/10/24 13:45 77 18 100/64 10/10/24 13:30 74 18 104/61 10/10/24 13:15 77 18 100/64 10/10/24 13:00 78 18 97/62 L 10/10/24 11:10 36.5 C 87 18 10/10/24 09:00 73 10/10/24 08:33 10/10/24 08:00 10/10/24 08:00 36.7 C 87 18 BP Pulse Ox O2 Del Method 10/10/24 15:00 96 Room Air 10/10/24 14:34 94 Room Air 10/10/24 14:14 94 Room Air 10/10/24 14:04 93 Room Air 10/10/24 13:45 94 Room Air 10/10/24 13:30 94 Room Air 10/10/24 13:15 96 Room Air 10/10/24 13:00 93 Room Air 10/10/24 11:10 93/54 L 96 Room Air 10/10/24 09:00 10/10/24 08:33 103/68 10/10/24 08:00 Room Air 10/10/24 08:00 89/50 L 98 Room Air Intake & Output 10/08/24 10/09/24 10/10/24 10/11/24 06:59 06:59 06:59 06:59 Intake Total 2598.667 / 2598.667 1112.566 / 1112.566 Balance 2598.667 / 2598.667 1112.566 / 1112.566 Weight 234 lb 9.149 oz 234 lb 2.095 oz Laboratory Results Laboratory Results - last 24 hr 10/09/24 10/10/24 20:33 02:43 WBC 12.77 H RBC 4.72 Hgb 13.6 Hct 40.0 MCV 84.7 MCH 28.8 MCHC 34.0 RDW Std Deviation 40.7 RDW Coeff of Serina 13.2 Plt Count 249 MPV 12.0 Heparin Anti-Xa, Unfract 0.27 L 0.24 L Sodium 128 L Potassium 3.6 Chloride 98 Carbon Dioxide 24 Anion Gap 6 BUN 18 Creatinine 0.52 L Est Cr Clr Drug Dosing 146.4 eGFR 108.97 BUN/Creatinine Ratio 34.6 H Glucose 145 H Calcium 7.9 L Diagnostic Findings Labs reviewed and notable for normal renal function, normal potassium, hyponatremia,, mild leukocytosis (new) and normal hemoglobin. Telemetry personally reviewed: Sinus rhythm. Limited echo 10/10/2024: Preliminary review demonstrated stable LV systolic function compared to previous. Small to moderate pericardial effusion without echocardiographic evidence of tamponade physiology. Formal review to follow. Cardiac cath 10/10/2024: Coronary angiography: 1. Left main: No significant CAD. 2. Left anterior descending: No significant CAD. Large D1 and small D2 without significant CAD. 3. Circumflex: No significant CAD within the circumflex, large OM1, medium OM 2, small OM 3. 4. Right coronary artery: RCA is large and dominant. Luminal irregularities in the mid RCA. PDA and PL without significant CAD. Left heart catheterization: 1. Left ventriculography was not performed. 2. No significant aortic stenosis. 3. LVEDP 13. Medications Administered Current Inpatient Medications Acetaminophen (Acetaminophen 325 Mg Tab) 650 mg PO Q4H PRN PRN Reason: Pain or Fever Stop: 11/06/24 17:00 Al Hydrox/Mg Hydrox/Simethicone (Aluminum/Magnesium Susp 30 Ml Udc) 15 ml PO Q4H PRN PRN Reason: Dyspepsia Stop: 11/06/24 17:00 Albuterol (Albut/Ipratrop 3mg/0.5mg Neb 3 Ml Vial) 3 ml NEB Q4R PRN; Protocol PRN Reason: Shortness Of Breath Or Wheezing Stop: 11/07/24 14:59 Aspirin (Aspirin 81 Mg Ectab) [facility] [place]: 11/07/24 08:59 Last Admin: 03/11/25 08:34 Dose: 81 mg Azithromycin (Azithromycin 250 Mg Tab) 250 mg PO QAM [facility] Stop: 10/13/24 08:59 Last Admin: 10/10/24 08:35 Dose: 250 mg Carvedilol (Carvedilol 3.125 Mg Tab) 3.125 mg PO BIDM [facility] Stop: 11/06/24 17:00 Last Admin: 10/10/24 08:35 Dose: 3.125 mg Estradiol (Estradiol 1 Mg Tab) 2 mg PO QAM [facility] Stop: 11/07/24 08:59 Last Admin: 10/10/24 08:34 Dose: 2 mg Guaifenesin (Guaifenesin 600 Mg Tabcr) 600 mg PO Q12 [facility] Stop: 11/06/24 20:59 Last Admin: 10/10/24 08:35 Dose: 600 mg Ceftriaxone Sodium (Rocephin) 2,000 mg in 50 mls @ 100 mls/hr IV Q24H [facility] Stop: 10/12/24 17:59 Last Infusion: 10/09/24 21:12 Dose: Infused Levothyroxine Sodium (Levothyroxine Sodium 25 Mcg Tablet) 37.5 mcg PO DAILYBB [facility] Stop: 11/07/24 06:29 Last Admin: 10/10/24 06:05 Dose: 37.5 mcg Magnesium Hydroxide (Magnesium Hydroxide Susp 30 Ml Udc) 30 ml PO Q12H PRN PRN Reason: Constipation Stop: 11/06/24 17:00 Ondansetron HCl (Ondansetron Inj 2 Mg/Ml 2 Ml Vial) 4 mg IV Q6H PRN PRN Reason: Nausea Stop: 11/06/24 17:00 Oseltamivir Phosphate (Oseltamivir Phosphate 75 Mg Cap) 75 mg PO BID [facility] Stop: 10/13/24 10:59 Last Admin: 10/10/24 08:34 Dose: 75 mg Pantoprazole Sodium (Pantoprazole 40 Mg Tab) 40 mg PO QAM [facility] Stop: 11/07/24 08:59 Last Admin: 10/10/24 08:35 Dose: 40 mg Rosuvastatin Calcium (Rosuvastatin Calcium 5 Mg Tab) 5 mg PO HS [facility] Stop: 11/06/24 20:59 Last Admin: 10/09/24 21:03 Dose: 5 mg Sacubitril/Valsartan (Valsartan/Sacubitril 26/24mg Tab) 1 tab PO BID [facility] Stop: 11/08/24 08:59 Last Admin: 10/10/24 08:34 Dose: 1 tab PG Care Time/CCT Total # of Minutes Spent Total Time Spent with Patient: Total time spent is greater than 50% in coordination of care (as documented) at patient's floor/unit and/or counseling patient: Coding Level of Care Code 62519 SUB INP/OBS CARE 3/50MIN Diagnoses Non-ST elevation (NSTEMI) myocardial infarction I21.4 Elevated troponin R79.89 Cardiomyopathy I42.9 Viral cardiomyopathy B33.24 Pericardial effusion I31.39
[2024-10-10] MEDS: ONDANSETRON INJ 2 MG/ML 2 ML VIAL IV PRN (19:23)
[2024-10-10] MEDS: COLCHICINE 0.6 MG TAB PO SCH (20:39)
--- NOTE | 2024-10-10 21:24 | XCELERA ---
[id number] \\[id number]
--- NOTE | 2024-10-10 23:14 | Hospitalist Progress Note ---
Date of Service October 10, 2024 Assessment & Plan (1) Community acquired bacterial pneumonia: (2) Influenza A: (3) Elevated troponin: (4) Dehydration: Plan 54 year old female presenting with CAP in the setting of influenza and NSTEMI. #CAP - Acute bilateral in setting of acute influenza A infection - no oxygen requirement - Labs revealed, no leukocytosis and pt is afebrile. Defer blood cultures. - Tx for CAP with Rocephin 2g IV daily and Zithromax 500mg x1 and then 250mg x4 doses. - Add Mucinex 600mg BID and Duonebs QIDR and q2 prn dyspnea/wheezing #Influenza A - Acute (flu-like sx started last Wednesday, 10/01) - Tamiflu x 5 days due to patient being hospitalized. started on 10/08 #acute vital pericarditis/myocarditis NSTEMI was a possible diagnosis and received treatment such as 48 hour of IV heparin however given negative cath, the diagnosis is likely myocarditis secondary to influenza. Acute with h/o viral [employer] and family hx of early CAD, risk factors include HLD and obesity - Elevated HS trop of 3411-> 3233 - CTA negative for PE - TTE with EF= 40-45%, global hypokinesis, small pericardial effusion (EF from 2021 60-65%) - EKG with septal infarct ?age - Consult cardiology, pt follows with Dr. Moss. Dr. Orosco is covering. Appreciate assistance. - Continue rosuvastatin, aspirin, and coreg - placed on colchcine. repeat echo showed small to moderate pericardial effusion without echo. #Dehydration Acute in setting of viral illness, pt endorses poor PO intake over the past week - No fluids given in ER, pt with H/H of 16.2 and 48 respectively. Renal fxn WNL. Na 135. - BP dropped in ED to 92/58-> compelted total 2L IVF - Encourage fluids Chronic medical problems: 1. GERD - continue protonix 2. hypothyroidism - continue levothyroxine 3. Chronic HRT - continue estradiol as there is no evidence of PE on CTA chest Admission and Anticipated Discharge Date Admission Date: October 07, 2024 Subjective 54 yo female reports no new symptoms. Physical Exam Physical Exam: Constitutional: well-appearing, no acute distress HEENT: NCAT, no conjunctival injection CV: regular rhythm, no murmur appreciated, extremities well-perfused, no LE edema Resp:rhonchi bases B/L, no increased work of breathing GI: soft, nondistended, nontender MSK: no gross deformities appreciated Skin: warm, dry, no rash appreciated Neuro: alert, oriented, no focal neurologic deficit appreciated Results & Data Results & Data Vital Signs (Past 12 Hours) Vital Signs Temp Pulse Pulse Pulse Pulse Resp BP 10/10/24 22:59 88 10/10/24 22:31 36.5 C 78 18 10/10/24 19:35 10/10/24 19:07 36.7 C 86 18 10/10/24 17:04 36.6 C 84 18 115/74 10/10/24 16:04 37.8 C H 87 18 10/10/24 15:00 36.4 C L 79 18 10/10/24 14:34 36.4 C L 81 18 10/10/24 14:14 82 17 10/10/24 14:04 36.6 C 79 18 97/61 L 10/10/24 13:45 77 18 100/64 10/10/24 13:30 74 18 104/61 10/10/24 13:15 77 18 100/64 10/10/24 13:00 78 18 97/62 L BP Pulse Ox O2 Del Method 10/10/24 22:59 10/10/24 22:31 102/66 96 Room Air 10/10/24 19:35 Room Air 10/10/24 19:07 102/60 97 Room Air 10/10/24 17:04 96 Room Air 10/10/24 16:04 102/70 95 Room Air 10/10/24 15:00 98/64 L 96 Room Air 10/10/24 14:34 111/73 94 Room Air 10/10/24 14:14 99/69 L 94 Room Air 10/10/24 14:04 93 Room Air 10/10/24 13:45 94 Room Air 10/10/24 13:30 94 Room Air 10/10/24 13:15 96 Room Air 10/10/24 13:00 93 Room Air PG Care Time/CCT Total # of Minutes Spent Total Time Spent with Patient: Total time spent is greater than 50% in coordination of care (as documented) at patient's floor/unit and/or counseling patient: Coding Level of Care Code 76668 SUB INP/OBS CARE 3/50MIN Diagnoses Community acquired bacterial pneumonia J15.9 Influenza A J10.1 Elevated troponin R79.89 Dehydration E86.0
[2024-10-11 06:30] LABS: Hemoglobin 13.4 g/dl (12.0-16.0); Mean Corpuscular Hemoglobin 28.9 pg (25.0-34.0); Mean Corpuscular Hgb Conc 33.5 g/dL (32.0-36.0); Mean Corpuscular Volume 86.2 fL (80.0-100.0); Mean Platelet Volume 12.1 fL (9.4-12.4); Platelet Count 292 K/uL (130-400); RDW Coefficient of Variation 13.7 % (11.5-14.5); RDW Standard Deviation 42.7 fL (36.4-46.3); Red Blood Count 4.64 M/uL (4.20-5.40)
[2024-10-11 06:49] LABS: BUN Creatinine Ratio 28.3 (10-20); C Reactive Protein 0.88 mg/dl (0-0.5); Calcium 8.2 mg/dl (8.6-10.3); Creatinine Clr Calc Pharmacy 126.7 ml/min; Potassium 3.9 mmol/L (3.5-5.1)
[2024-10-11] MEDS: NITROGLYCERIN/D5W 100MCG/ML 20ML SYR ONE (07:23)
--- NOTE | 2024-10-11 08:51 | Cardiology Progress Note ---
Date of Service October 11, 2024 Assessment & Plan (1) Acute myocarditis: (2) Elevated troponin: (3) Cardiomyopathy: (4) Viral cardiomyopathy: (5) Pericardial effusion: Plan ASSESSMENT/PLAN: 1. Acute myocarditis: No significant CAD on coronary angiography. Reduced LV systolic function with troponin elevation. Consider cardiac MRI in the outpatient setting. On colchicine given pericardial effusion. Supportive care. 2. Cardiomyopathy: History of viral myocarditis and LV systolic function had normalized but is now mildly reduced with what appears to be another episode of myocarditis. Continue carvedilol if blood pressure tolerates, however it was held on 10/11/2024 due to mild hypotension. Started low-dose Entresto on 10/09/2024 but held due to hypotension. She appears euvolemic and LVEDP not significantly elevated. She does not require ICD for primary prevention. 3. Pericardial effusion: Small to moderate and likely related to her viral process as well as she has been diagnosed with influenza A. Colchicine initiated on 10/10/2024. Will likely repeat echo in the next 1 to 2 days. 4. Pneumonia/influenza A: As per primary hospitalist service. Clinically appears improved today compared to the past several days. 5. Disposition: Cardiology will continue to follow. On discharge, follow-up with Dr. Moss, her primary sheriff officer. Plan of care communicated with Dr. Antonio of the primary hospitalist service. Admission and Anticipated Discharge Date Admission Date: October 07, 2024 Subjective She was seen earlier this afternoon. She states that today's the first day that she feels significantly better. Energy level has improved. Dyspnea with exertion has significantly improved. She denies chest pain. She had some transient lightheadedness earlier today with mild hypotension when she was out of bed with systolic blood pressures in the mid 90s. Carvedilol was held due to that blood pressure. She inquired when she can go home. She denies melena, hematochezia, hematuria, palpitations. Physical Exam Physical Exam: Gen.: No acute distress. Alert and oriented. HEENT: Anicteric sclera. Neck: No JVD. Cardiac: Regular. Normal S1-S2. No murmurs, rubs, or gallops. Pulmonary: Clear to auscultation bilaterally. Abdomen: Soft, nontender, nondistended, with normoactive bowel sounds. No bruits noted. Extremities: Right radial cath site was clean, dry, intact without erythema or discharge. 2+ posterior tibialis pulses bilaterally. No significant pitting edema or cyanosis. Results & Data Vital Signs (Past 12 Hours) Vital Signs Temp Pulse Pulse Resp BP Pulse Ox O2 Del Method 10/11/24 07:25 36.9 C 81 18 94/62 L 94 Room Air 10/11/24 02:20 36.6 C 80 16 100/66 95 Room Air 10/10/24 22:59 88 10/10/24 22:31 36.5 C 78 18 102/66 96 Room Air Intake & Output 10/09/24 10/10/24 10/11/24 10/12/24 06:59 06:59 06:59 06:59 Intake Total 2598.667 / 2598.667 1112.566 / 1112.566 570 / 570 Balance 2598.667 / 2598.667 1112.566 / 1112.566 570 / 570 Weight 234 lb 9.149 oz 234 lb 2.095 oz 233 lb 14.567 oz Laboratory Results Laboratory Results - last 24 hr 10/11/24 05:55 WBC 11.40 H RBC 4.64 Hgb 13.4 Hct 40.0 MCV 86.2 MCH 28.9 MCHC 33.5 RDW Std Deviation 42.7 RDW Coeff of Serina 13.7 Plt Count 292 MPV 12.1 Sodium 130 L Potassium 3.9 Chloride 99 Carbon Dioxide 26 Anion Gap 5 BUN 17 Creatinine 0.60 Est Cr Clr Drug Dosing 126.7 eGFR 105.28 BUN/Creatinine Ratio 28.3 H Glucose 152 H Calcium 8.2 L C-Reactive Protein 0.88 H B-Natriuretic Peptide 338 H Diagnostic Findings Labs reviewed and notable for normal potassium, hyponatremia but mildly improved, stable renal function, mild leukocytosis, normal hemoglobin. Telemetry personally reviewed: Sinus rhythm. No arrhythmia. Medications Administered Current Inpatient Medications Acetaminophen (Acetaminophen 325 Mg Tab) 650 mg PO Q4H PRN PRN Reason: Pain or Fever Stop: 11/06/24 17:00 Al Hydrox/Mg Hydrox/Simethicone (Aluminum/Magnesium Susp 30 Ml Udc) 15 ml PO Q4H PRN PRN Reason: Dyspepsia Stop: 11/06/24 17:00 Albuterol (Albut/Ipratrop 3mg/0.5mg Neb 3 Ml Vial) 3 ml NEB Q4R PRN; Protocol PRN Reason: Shortness Of Breath Or Wheezing Stop: 11/07/24 14:59 Aspirin (Aspirin 81 Mg Ectab) [facility] [place] Stop: 11/07/24 08:59 Last Admin: 10/11/24 08:48 Dose: 81 mg Azithromycin (Azithromycin 250 Mg Tab) [facility] [place] Stop: 10/13/24 08:59 Last Admin: 10/11/24 08:48 Dose: 250 mg Carvedilol (Carvedilol 3.125 Mg Tab) 3.125 mg PO BIDM [facility] Stop: 11/06/24 17:00 Last Admin: 10/10/24 17:34 Dose: 3.125 mg Colchicine (Colchicine 0.6 Mg Tab) 0.6 mg PO BID [facility] Stop: 11/09/24 20:59 Last Admin: 10/11/24 08:47 Dose: 0.6 mg Estradiol (Estradiol 1 Mg Tab) 2 mg PO QAM [facility] Stop: 11/07/24 08:59 Last Admin: 10/11/24 08:48 Dose: 2 mg Guaifenesin (Guaifenesin 600 Mg Tabcr) 600 mg PO Q12 [facility] Stop: 11/06/24 20:59 Last Admin: 10/11/24 08:48 Dose: 600 mg Ceftriaxone Sodium (Rocephin) 2,000 mg in 50 mls @ 100 mls/hr IV Q24H [facility] Stop: 10/12/24 17:59 Last Infusion: 10/10/24 19:26 Dose: Infused Levothyroxine Sodium (Levothyroxine Sodium 25 Mcg Tablet) 37.5 mcg PO DAILYBB [facility] Stop: 11/07/24 06:29 Last Admin: 10/11/24 06:17 Dose: 37.5 mcg Magnesium Hydroxide (Magnesium Hydroxide Susp 30 Ml Udc) 30 ml PO Q12H PRN PRN Reason: Constipation Stop: 11/06/24 17:00 Ondansetron HCl (Ondansetron Inj 2 Mg/Ml 2 Ml Vial) 4 mg IV Q6H PRN PRN Reason: Nausea Stop: 11/06/24 17:00 Last Admin: 10/10/24 19:23 Dose: 4 mg Oseltamivir Phosphate (Oseltamivir Phosphate 75 Mg Cap) 75 mg PO BID [facility] Stop: 10/13/24 10:59 Last Admin: 10/11/24 08:48 Dose: 75 mg Pantoprazole Sodium (Pantoprazole 40 Mg Tab) 40 mg PO QAM [facility] Stop: 11/07/24 08:59 Last Admin: 10/11/24 08:48 Dose: 40 mg Rosuvastatin Calcium (Rosuvastatin Calcium 5 Mg Tab) 5 mg PO HS [facility] Stop: 11/06/24 20:59 Last Admin: 10/10/24 20:39 Dose: 5 mg Sacubitril/Valsartan (Valsartan/Sacubitril 26/24mg Tab) 1 tab PO BID [facility] Stop: 11/08/24 08:59 Last Admin: 10/10/24 08:34 Dose: 1 tab PG Care Time/CCT Total # of Minutes Spent Total Time Spent with Patient: Total time spent is greater than 50% in coordination of care (as documented) at patient's floor/unit and/or counseling patient: Coding Level of Care Code 40617 SUB INP/OBS CARE 3/50MIN Diagnoses Acute myocarditis I40.9 Elevated troponin R79.89 Cardiomyopathy I42.9 Viral cardiomyopathy B33.24 Pericardial effusion I31.39
[2024-10-11 10:15] LABS: Troponin I High Sensitivity 863.4 pg/ml (0-14)
[2024-10-11] MEDS: ENOXAPARIN INJ 40 MG/0.4 ML SYR SQ SCH (11:24)
--- NOTE | 2024-10-11 19:08 | Hospitalist Progress Note ---
Date of Service October 11, 2024 Assessment & Plan (1) Community acquired bacterial pneumonia: (2) Influenza A: (3) Elevated troponin: (4) Dehydration: Plan 54 year old female presenting with CAP in the setting of influenza and NSTEMI. #CAP - Acute bilateral in setting of acute influenza A infection - no oxygen requirement - Labs revealed, no leukocytosis and pt is afebrile. Defer blood cultures. - Tx for CAP with Rocephin 2g IV daily and Zithromax 500mg x1 and then 250mg x4 doses. - Add Mucinex 600mg BID and Duonebs QIDR and q2 prn dyspnea/wheezing -symptoms likely more from viral myocarditis #Influenza A - Acute (flu-like sx started last Wednesday, 10/01) - Tamiflu x 5 days due to patient being hospitalized. started on 10/08 #acute vital pericarditis/myocarditis NSTEMI was a possible diagnosis and received treatment such as 48 hour of IV heparin however given negative cath, the diagnosis is likely myocarditis secondary to influenza. Acute with h/o viral [employer] and family hx of early CAD, risk factors include HLD and obesity - Elevated HS trop of 3411-> 3233 - CTA negative for PE - TTE with EF= 40-45%, global hypokinesis, small pericardial effusion (EF from 2021 60-65%) - EKG with septal infarct ?age - Consult cardiology, pt follows with Dr. Moss. Dr. Orosco is covering. Appreciate assistance. - Continue rosuvastatin, aspirin -held am coreg due to bp -holdingentresto due to BP - placed on colchicine. repeat echo showed small to moderate pericardial effusion without echo. #Dehydration Acute in setting of viral illness, pt endorses poor PO intake over the past week - No fluids given in ER, pt with H/H of 16.2 and 48 respectively. Renal fxn WNL. Na 135. - BP dropped in ED to 92/58-> compelted total 2L IVF - Encourage fluids Chronic medical problems: 1. GERD - continue protonix 2. hypothyroidism - continue levothyroxine 3. Chronic HRT - continue estradiol as there is no evidence of PE on CTA chest Admission and Anticipated Discharge Date Admission Date: October 07, 2024 Subjective Patient reports slow improvement but CAMPUZANO, SOB improving Physical Exam Physical Exam: Constitutional: well-appearing, no acute distress HEENT: NCAT, no conjunctival injection CV: regular rhythm, no murmur appreciated, extremities well-perfused, no LE edema Resp:rhonchi bases B/L, no increased work of breathing GI: soft, nondistended, nontender MSK: no gross deformities appreciated Skin: warm, dry, no rash appreciated Neuro: alert, oriented, no focal neurologic deficit appreciated Results & Data Results & Data Vital Signs (Past 12 Hours) Vital Signs Temp Pulse Resp BP BP Pulse Ox O2 Del Method 10/11/24 15:32 36.6 C 84 20 102/65 98 Room Air 10/11/24 11:25 90 10/11/24 11:20 36.6 C 55 L 18 110/69 97 Room Air 10/11/24 08:51 92 H 96/66 L 10/11/24 07:25 36.9 C 81 18 94/62 L 94 Room Air PG Care Time/CCT Total # of Minutes Spent Total Time Spent with Patient: Total time spent is greater than 50% in coordination of care (as documented) at patient's floor/unit and/or counseling patient: Coding Level of Care Code 28784 SUB INP/OBS CARE 3/50MIN Diagnoses Community acquired bacterial pneumonia J15.9 Influenza A J10.1 Elevated troponin R79.89 Dehydration E86.0
[2024-10-12 06:51] LABS: Hematocrit (blood only) 39.5 % (37.0-47.0); Hemoglobin 12.8 g/dl (12.0-16.0); Mean Corpuscular Hemoglobin 28.4 pg (25.0-34.0); Mean Corpuscular Hgb Conc 32.4 g/dL (32.0-36.0); Mean Corpuscular Volume 87.6 fL (80.0-100.0); Mean Platelet Volume 11.8 fL (9.4-12.4); Platelet Count 295 K/uL (130-400); RDW Coefficient of Variation 14.2 % (11.5-14.5); RDW Standard Deviation 44.4 fL (36.4-46.3); Red Blood Count 4.51 M/uL (4.20-5.40); White Blood Count 9.62 K/ul (4.8-10.8)
[2024-10-12 07:11] LABS: BUN Creatinine Ratio 25.9 (10-20); C Reactive Protein 0.77 mg/dl (0-0.5); Calcium 8.1 mg/dl (8.6-10.3); Creatinine Clr Calc Pharmacy 141.1 ml/min
--- NOTE | 2024-10-12 10:20 | XCELERA ---
[id number]
--- NOTE | 2024-10-12 10:28 | Cardiology Progress Note ---
Date of Service October 12, 2024 Assessment & Plan (1) Acute myocarditis: (2) Elevated troponin: (3) Cardiomyopathy: (4) Viral cardiomyopathy: (5) Pericardial effusion: Plan ASSESSMENT/PLAN: 1. Acute myocarditis: No significant CAD on coronary angiography. LV systolic function was mildly reduced but appears improved on today's limited echo. Has had intermittent hypotension with lightheadedness on carvedilol and Entresto. Entresto held. Can hold carvedilol. On colchicine given pericardial effusion. Supportive care. 2. Cardiomyopathy: History of viral myocarditis and LV systolic function had normalized but again mildly reduced with what appears to be another episode of myocarditis. LV systolic function appears normal today on limited echo. Has had issues with mild hypotension and lightheadedness on just low-dose carvedilol alone. Can hold/discontinue carvedilol for now. Started low-dose Entresto on 10/09/2024 but held due to hypotension. She appears euvolemic and LVEDP not significantly elevated. She does not require ICD for primary prevention. 3. Pericardial effusion: Small to moderate and likely related to her viral process as well as she has been diagnosed with influenza A. Colchicine initiated on 10/10/2024. Limited echo on 10/12/2024 demonstrated improvement of pericardial effusion without echocardiographic evidence of tamponade physiology. Recommend repeating an echo as an outpatient, or sooner for change in clinical status. 4. Pneumonia/influenza A: As per primary hospitalist service. Clinically has improved. 5. Disposition: Cardiology will sign off at this time. Please call for any further questions or concerns. On discharge, follow-up with Dr. Moss, her primary railroad baggage porter (appointment scheduled). Plan of care communicated with Dr. Jones of the primary hospitalist service. Admission and Anticipated Discharge Date Admission Date: October 07, 2024 Subjective She was seen this morning and was unaccompanied. She was out of bed in a chair. She denies chest pain. She denies shortness of breath. She had total body myalgias with ambulation yesterday in the hallway. She denies syncope, near syncope. Lightheadedness had resolved. She denies melena, hematochezia, or hematuria. Physical Exam Physical Exam: Gen.: No acute distress. Alert and oriented. HEENT: Anicteric sclera. Neck: No JVD. Cardiac: Regular. Ectopy. Normal S1-S2. No murmurs, rubs, or gallops. Pulmonary: Clear to auscultation bilaterally. Abdomen: Soft, nontender, nondistended, with normoactive bowel sounds. No bruits noted. Extremities: Right radial cath site was clean, dry, intact without erythema or discharge. 2+ posterior tibialis pulses bilaterally. No significant pitting edema or cyanosis. Results & Data Vital Signs (Past 12 Hours) Vital Signs Temp Pulse Pulse Resp BP Pulse Ox O2 Del Method 10/12/24 07:40 36.5 C 86 18 103/61 97 Room Air 10/12/24 03:02 36.7 C 85 18 101/68 96 Room Air 10/11/24 23:01 36.6 C 74 18 96/66 L 95 Room Air 10/11/24 22:48 78 10/11/24 22:28 Room Air Laboratory Results Laboratory Results - last 24 hr 10/12/24 06:27 WBC 9.62 RBC 4.51 Hgb 12.8 Hct 39.5 MCV 87.6 MCH 28.4 MCHC 32.4 RDW Std Deviation 44.4 RDW Coeff of Serina 14.2 Plt Count 295 MPV 11.8 Sodium 135 L Potassium 4.0 Chloride 103 Carbon Dioxide 28 Anion Gap 4 BUN 15 Creatinine 0.58 L Est Cr Clr Drug Dosing 141.1 eGFR 106.14 BUN/Creatinine Ratio 25.9 H Glucose 122 H Calcium 8.1 L C-Reactive Protein 0.77 H B-Natriuretic Peptide 382 H Diagnostic Findings Labs reviewed and notable for normal blood counts, normal renal function, normal potassium. Limited echo 10/12/2024: Normal LV systolic function. Small pericardial effusion. Pericardial effusion and LV systolic function appears improved. Medications Administered Current Inpatient Medications Acetaminophen (Acetaminophen 325 Mg Tab) 650 mg PO Q4H PRN PRN Reason: Pain or Fever Stop: 11/06/24 17:00 Al Hydrox/Mg Hydrox/Simethicone (Aluminum/Magnesium Susp 30 Ml Udc) 15 ml PO Q4H PRN PRN Reason: Dyspepsia Stop: 11/06/24 17:00 Albuterol (Albut/Ipratrop 3mg/0.5mg Neb 3 Ml Vial) 3 ml NEB Q4R PRN; Protocol PRN Reason: Shortness Of Breath Or Wheezing Stop: 11/07/24 14:59 Aspirin (Aspirin 81 Mg Ectab) 81 mg PO [facility] Stop: 11/07/24 08:59 Last Admin: 10/12/24 08:21 Dose: 81 mg Azithromycin (Azithromycin 250 Mg Tab) [facility] [place] Stop: 10/13/24 08:59 Last Admin: 10/12/24 08:21 Dose: 250 mg Carvedilol (Carvedilol 3.125 Mg Tab) 3.125 [facility] [place] Stop: 11/06/24 17:00 Last Admin: 10/12/24 08:21 Dose: 3.125 mg Colchicine (Colchicine 0.6 Mg Tab) 0.6 mg PO BID [facility] Stop: 11/09/24 20:59 Last Admin: 10/12/24 08:20 Dose: 0.6 mg Enoxaparin Sodium (Enoxaparin Inj 40 Mg/0.4 Ml Syr) 40 mg SQ [facility] Stop: 11/10/24 09:44 Last Admin: 10/12/24 08:20 Dose: 40 mg Estradiol (Estradiol 1 Mg Tab) 2 mg PO [facility] Stop: 11/07/24 08:59 Last Admin: 10/12/24 08:22 Dose: 2 mg Levothyroxine Sodium (Levothyroxine Sodium 25 Mcg Tablet) [facility] Stop: 11/07/24 06:29 Last Admin: 10/12/24 06:24 Dose: 37.5 mcg Magnesium Hydroxide (Magnesium Hydroxide Susp 30 Ml Udc) 30 ml PO Q12H PRN PRN Reason: Constipation Stop: 11/06/24 17:00 Ondansetron HCl (Ondansetron Inj 2 Mg/Ml 2 Ml Vial) 4 mg IV Q6H PRN PRN Reason: Nausea Stop: 11/06/24 17:00 Last Admin: 10/10/24 19:23 Dose: 4 mg Oseltamivir Phosphate (Oseltamivir Phosphate 75 Mg Cap) 75 mg PO BID [facility] Stop: 10/13/24 10:59 Last Admin: 10/12/24 08:21 Dose: 75 mg Pantoprazole Sodium (Pantoprazole 40 Mg Tab) [facility] [place] Stop: 11/07/24 08:59 Last Admin: 10/12/24 08:21 Dose: 40 mg Rosuvastatin Calcium (Rosuvastatin Calcium 5 Mg Tab) 5 mg PO HS [facility] Stop: 11/06/24 20:59 Last Admin: 10/11/24 20:53 Dose: 5 mg Sacubitril/Valsartan (Valsartan/Sacubitril 26/24mg Tab) 1 tab PO BID [facility] Stop: 11/08/24 08:59 Last Admin: 10/10/24 08:34 Dose: 1 tab PG Care Time/CCT Total # of Minutes Spent Total Time Spent with Patient: Total time spent is greater than 50% in coordination of care (as documented) at patient's floor/unit and/or counseling patient: Coding Level of Care Code 31219 SUB INP/OBS CARE 3/50MIN Diagnoses Acute myocarditis I40.9 Elevated troponin R79.89 Cardiomyopathy I42.9 Viral cardiomyopathy B33.24 Pericardial effusion I31.39
[2024-10-12 11:36] VITALS: RESP 20; TEMP 98.4; O2SAT 95
--- NOTE | 2024-10-12 12:42 | Discharge Summary ---
Discharge Summary Date of Service October 12, 2024 Principal Dx & Hospital Course #1 = Principal Diagnosis (1) Community acquired bacterial pneumonia: No overt pneumonic infiltrate seen on chest x-ray. She was treated while hospitalized with antibiotics and over the last. Resolved (2) Influenza A: Present on admission. She has been treated with Tamiflu while hospitalized (3) Elevated troponin: Appears to be due to acute myocarditis. No evidence of acute coronary syndrome (4) Dehydration: Mild on admission. Resolved with IV fluids (5) Acute myocarditis: Suspected on admission. Treated with colchicine. Appreciate cardiology consultation and recommendations. She did not tolerate addition of Entresto or Coreg due to low blood pressure. These have been discontinued Plan Home today, October 12, on colchicine. Admission HPI Per Admitting Provider Deb is a 54 yo F with a pmhx of viral induced cardiomyopathy (resolved) who follows with Dr. Moss, hyperlipidemia, and hypothyroidism who presents to the ER today c/o increased dyspnea. Pt reports that she developed flu-like symptoms including fever, chills and body aches last Wednesday (7 days ago). She never tested herself. She continued to feel poorly throughout the week, however, over the past two days she had increased dyspnea with minimal exertion. She also continues to have cough that is occasionally productive of scant amount of sputum. She denies wheezing. She endorses that her limbs feel "heavy" and she describes "heaviness" sensation in her chest. She did not get her flu vaccine this year. She has not been recently hospitalized or on any antibiotic therapy. Her last visit with Dr. Moss was last December 2023 and her last echo was at that time as well with an EF of 60-65%. Her ER w/u today is notable for being positive for influenza A, having an elevated high sensitivity troponin of 3411 and an elevated d-dimer of 850. She underwent CTA chest which was negative for PE but significant for bilateral lower lobe infiltrates c/w pneumonia. She was medicated with a dose of Zosyn, Vancomycin, received a heparin bolus and was started on a heparin gtt due to her elevated troponin c/f NSTEMI. She also received a dose of tamiflu 75mg pox1. She has been referred to the hospital medicine team for admission. Discharge Exam General-alert and oriented x3, no fever, no chills HEENT-head atraumatic and normocephalic, pupils equal and reactive to light, extraocular muscles intact Neck-no lymphadenopathy or thyromegaly, trachea midline Chest-clear to auscultation. No rales, wheezing or rhonchi Cardiac-regular rate and rhythm, normal S1 and S2 Abdomen-normal bowel sounds, no hepatosplenomegaly Extremities-no cyanosis, clubbing, or edema Neuro-cranial nerves II through XII intact, motor and sensory function within normal limits, strength symmetrical, no focal deficits Psych-normal affect, normal mood Discharge Plan Discharge Items Patient Disposition: Home - Self-Care Reason For Visit: FLU A,CAP,NSTEMI Discharge Diagnosis: Suspected acute myocarditis, influenza A, known viral cardiomyopathy, pericardial effusion without tamponade Activity: Resume your previous activity Non-emergency contact: Primary Care Provider and Lace Stripper Call non-emergency contact if: your symptoms worsen Follow-up/Referrals: Liang Calvin PA-C [Primary Care Provider] - Diet: Regular and Heart Healthy Addtl Attending Provider Instructions: Take colchicine as directed. All other medications remain the same Pending Studies at Discharge: No Stand-Alone Forms: [facility] Interactive, Smoking Cessation Medications and DC Order Prescriptions: New colchicine [Colcrys] 0.6 mg Tablet 0.6 mg PO BID Qty: 30 0RF Continued pantoprazole 40 mg tablet,delayed release (DR/EC) 40 mg PO QAM Qty: 90 3RF aspirin 81 mg tablet,chewable 81 mg PO QAM estradiol 2 mg tablet 2 mg PO QAM rosuvastatin 5 mg tablet 5 mg PO HS levothyroxine [Synthroid] 25 mcg tablet 37.5 mcg PO DAILYBB Discontinued carvedilol [Coreg] 3.125 mg tablet 3.125 mg PO BIDWMEAL Rx Instructions: must administer with a meal/food Discharge Orders: Discharge Order (Routine); Ordered 10/12/24 Ordered By: Charles Jones Admission Data Admit Date/Time: 10/07/24 14:30 Attending Provider: Charles Jones Admit Provider: Charles Jones Primary Care Provider: Liang Calvin Other Providers: Charles Jones; Benny Orosco Hospital Stay Data Consultations 10/07/24 14:01 ED Decision to Admit Stat 10/07/24 17:01 Consult Cardiology Routine Procedures Performed Operation Date: 10/10/24 11:00 Actual Procedures p Cineradiography w/Routine Exam(Right) - Benny Orosco MD p Cath, Left with Cors and Vent - Benny Orosco MD Diagnostic Imagining Performed 10/07/24 13:21 CT angio chest PE protocol Stat 10/10/24 06:51 CL Cath Imgs for PACS use only Routine Pending Results Patient Have Any Pending Studies at Discharge: No Discharge Instructions Given to Patient (Per Discharging Provider) Take colchicine as directed. All other medications remain the same Total Time Total Time Spent Total Time Spent (In Minutes): 45 minutes Coding Level of Care Code 99653 INP/OBS DISCH >30 MIN Diagnoses Community acquired bacterial pneumonia J15.9 Influenza A J10.1 Elevated troponin R79.89 Dehydration E86.0 Acute myocarditis I40.9
[2024-10-12 12:49] VITALS: BP 103/61; PULSE 77
== END 2024-10-12 17:30 | disposition home or self-care (01) | DRG 194 ==
LOC: SUATTDRO → ED 11:55 → 2S 14:30 → SUATTDRO 14:30 → 2S 14:51